=== PATIENT | male | born 1930 | race Hispanic/Latino ===

== ENCOUNTER 2017-03-13 22:09 | Inpatient (IN) | payer MEDICARE, BC ==
[2017-03-13 22:10] VITALS: BMI 29.3
[2017-03-13 23:11] LABS: BASO # 0.1 K/uL (0.0-0.2); BASO % 0.4 % (0.0-2.0); HEMOGLOBIN 11.8 g/dL (12.0-18.0); NEUT % 90.2 % (50.0-75.0)
[2017-03-13 23:19] LABS: EOS % 0.2 % (0.0-4.0); INR 2.7; LYMPH # 0.5 K/uL (1.0-4.3); LYMPH % 2.3 % (20.0-40.0); MEAN CELL VOLUME 95.4 fL (80.0-94.0); MEAN CORPUSCULAR HEMOGLOBIN 31.8 pg (27.0-31.0); MEAN CORPUSCULAR HGB CONC 33.3 g/dL (33.0-37.0); MONO # 1.4 K/uL (0.0-0.8); MONO % 6.9 % (0.0-10.0); NEUT # 18.3 K/uL (1.8-7.0); PLATELET COUNT 243 K/uL (130-400); PROTHROMBIN TIME 31.5 SECONDS (9.7-12.2); RBC 3.71 Mil/uL (4.40-5.90); RED CELL DISTRIBUTION WIDTH 15.3 % (11.5-14.5); WHITE BLOOD COUNT 20.3 K/uL (4.8-10.8)
[2017-03-13 23:25] LABS: ALB/GLOB RATIO 0.9 (1.0-2.1); ALBUMIN 3.1 g/dL (3.5-5.0)
--- NOTE | 2017-03-13 23:29 | C.PDOC ---
History Of Present Illness Patient BIBA for evaluation after having syncopal episode after BM. Patient currently residing at [facility] for rehab. He has PMHx of COPD, CHF, HTN, depression, PPM, cellulitis/stasis dermatitis. Patient states he was on the toilet and had LOC, but he remained on the toilet and did not fall to floor. He states prior to episode he felt lightheaded and weak. However he denies chest pain, palpitations, SOB, visual changes, facial droop, slurred speech, extremity weakness, sensory changes, headache. Time Seen by Provider: 03/13/17 22:14 Chief Complaint (Nursing): Syncope History Per: Patient, EMS, Other ([place] records) History/Exam Limitations: no limitations Onset/Duration Of Symptoms: Other (today) Current Symptoms Are (Timing): Better Activity At Onset Of Symptoms: Sitting Associated Symptoms Preceding Syncopal Episode: Lightheadedness Seizure Or Post-ictal Symptoms: None Fall Associated With With Symptoms: No Past Medical History Reviewed: Historical Data, Nursing Documentation, Vital Signs Vital Signs: Last Vital Signs Temp 98.3 F 03/21/17 15:00 Pulse 85 03/21/17 16:15 Resp 20 03/21/17 15:00 BP 115/68 03/21/17 15:00 Pulse Ox 95 03/21/17 15:00 - Medical History PMH: COPD, Depression, HTN Surgical History: Pacemaker Family History: States: Other Other Family History: noncontributory - Social History Hx Alcohol Use: No Hx Substance Use: No - Immunization History Hx Influenza Vaccination: Yes Hx Pneumococcal Vaccination: Yes Review Of Systems Except As Marked, All Systems Reviewed And Found Negative. Constitutional: Negative for: Fever, Chills Cardiovascular: Negative for: Chest Pain, Palpitations Respiratory: Negative for: Cough, Shortness of Breath Gastrointestinal: Negative for: Nausea, Vomiting, Abdominal Pain, Diarrhea Neurological: Positive for: Dizziness (lightheaded), Other (syncope). Negative for: Weakness, Numbness, Incoordination, Change in Speech, Confusion, Seizures, Altered Mental Status, Headache Physical Exam - Physical Exam Appears: Well, Non-toxic, No Acute Distress Skin: Normal Color, Warm, Dry, No Rash Head: Atraumatic, Normacephalic Eye(s): bilateral: Normal Inspection, PERRL, EOMI Oral Mucosa: Moist Chest: Other (sternotomy scar) Cardiovascular: Rhythm Regular, Murmur (4/6 holosystolic murmur) Respiratory: No Accessory Muscle Use, Rales (B/L bases), Rhonchi (B/L) Gastrointestinal/Abdominal: Normal Exam, Bowel Sounds, Soft, No Tenderness Extremity: Pedal Edema (+3 pitting edema B/L LEs), No Calf Tenderness Pulses: Left Dorsalis Pedis: Normal, Right Dorsalis Pedis: Normal Neurological/Psych: Oriented x3 ED Course And Treatment - Laboratory Results Result Diagrams: 03/15/17 06:27 03/18/17 06:24 ECG: Interpreted By Me, Viewed By Me (ventirucularly paced rhythm 62 bpm, left axis deviation, T wave inversions V2-V6, no acute ST changes) ECG Interpretation: Abnormal O2 Sat by Pulse Oximetry: 88 (ra) Pulse Ox Interpretation: Abnormal - Other Rad CXR X-Ray: Viewed By Me, Read By Radiologist Interpretation: EXAM: XR Chest, 1 View. CLINICAL HISTORY: 86 years old, male ; Pain; Chest pain; Additional info: SOB. TECHNIQUE: Frontal view of the chest. COMPARISON: No relevant prior studies available. FINDINGS: Lungs: Mild patchy opacity right mid and lower lung. Pleural space: Small LEFT pleural effusion. No pneumothorax. Heart: Mild cardiomegaly. Mediastinum: Atherosclerosis of thoracic aorta. Bones/joints: Median sternotomy. Tubes, lines and devices: Leads overlying chest. LEFT pacemaker. IMPRESSION: 1. Probable multifocal pneumonia. Followup to resolution to exclude underlying pathology. 2. Mild cardiomegaly. 3. Small left pleural effusion. 4. Incidental/non-acute findings are described above. Thank you for allowing us to participate in the care of your patient. [facility]. [facility]. Final Radiology Report [id number]. Name: KEVIN CENTENO Age: 86Years M Date: 03/13/2017. SSN: [id number] : 1930. Study: XR CHEST 1 VIEW Requesting Physician: SAE ROSS. Images: 2. Addl Studies: Provided Clinical History: SOB. CONFIDENTIALITY STATEMENT. This transmission is confidential and is intended to be a privileged communication. It is intended only for the use of the addressee. Access to this. message by anyone else is unauthorized. If you are not the intended recipient, any disclosure, copying, distribution or any action taken, or omitted to. be taken in reliance on it is prohibited and may be unlawful. If you received this communication in error, please notify us by telephone, so that return. of this document to us can be arranged. Page 2 of 2. Dictated and Authenticated by: Adonis Banegas MD. 03/13/2017 11:47 PM Eastern Time ([place] & [place]) - CT Scan/US CT HEAD Other Rad Studies (CT/US): Read By Radiologist, Radiology Report Reviewed CT/US Interpretation: EXAM: CT Head Without Intravenous Contrast. CLINICAL HISTORY: 86 years old, male; Pain; Headache; Additional info: Syncope. TECHNIQUE: Axial computed tomography images of the head/brain without intravenous contrast. All CT scans at. this facility use one or more dose reduction techniques, viz.: automated exposure control; ma/kV. adjustment per patient size (including targeted exams where dose is matched to indication; i.e. head);. or iterative reconstruction technique. Sagittal reformatted images were created and reviewed. COMPARISON: No relevant prior studies available. FINDINGS: Brain: Moderate atrophy. No intracranial hemorrhage. No mass. Minimal encephalomalacia within. right occipital region. Few scattered foci of decreased attenuation within periventricular/subcortical. white matter. No definite edema. Ventricles: No hydrocephalus. Bones/joints: No acute fracture. Soft tissues: Unremarkable. Vasculature: Atherosclerotic disease of intracranial arteries. Few foci of air about cavernous sinus,. nonspecific but possibly iatrogenic. Sinuses: Scattered minimal mucosal thickening. Small air-fluid level within RIGHT maxillary sinus. Mastoid air cells: No mastoid effusion. Orbits: Unremarkable as visualized. [facility]. [facility]. Final Radiology Report [id number]. Name: KEVIN CENTENO Age: 86Years M Date: 03/13/2017. SSN: [id number] : 1930. Study: CT HEAD WO Requesting Physician: SAE ROSS. Images: 469. Addl Studies: Provided Clinical History: SYNCOPE. CONFIDENTIALITY STATEMENT. This transmission is confidential and is intended to be a privileged communication. It is intended only for the use of the addressee. Access to this. message by anyone else is unauthorized. If you are not the intended recipient, any disclosure, copying, distribution or any action taken, or omitted to. be taken in reliance on it is prohibited and may be unlawful. If you received this communication in error, please notify us by telephone, so that return. of this document to us can be arranged. Page 2 of 2. IMPRESSION: 1. Nonspecific white matter changes. Acute infarction may be CT occult within first 24 hours. If a. focal deficit persists, consider followup CT or MRI for further evaluation. 2. Incidental/non -acute findings are described above. Thank you for allowing us to participate in the care of your patient. Dictated and Authenticated by: Adonis Banegas MD. 03/13/2017 11:45 PM Eastern Time ([place] & [place]) Progress Note: Blood work, CT head, EKG, CXR, UA ordered and reviewed. Patient given duoneb. CXR shows right sided PNA - IV Vancomycin, Cefepime and Avelox ordered for HCAP. BP currently 100s/30s, small IV NS bolus ordered + Bipap. 12:10- Spoke with automatic bow maker machine tender Dr. Greene, will come down and evaluate patient for possible ICU admission. Pending call back from Dr. Eng (covering Phani Mijares). Prior labs done on 03/04/17 reviewed, Bun was 49, Cr was 1.4, WBC WNL. CXR done on 03/05/17 negative for infiltrate, (+) small left pleural effusion. - Physician Consult Information Physician Contacted: Alec Eng Critical Care Time - Critical Care Note Total Time (in mins): 45 Documented critical care: time excludes all time spent performing seperately billable procedures. Disposition - Disposition Disposition: HOSPITALIZED Disposition Time: 13:43 Condition: GUARDED - Clinical Impression Clinical Impression: Pneumonia, CHF (congestive heart failure), ARF (acute renal failure), Leukocytosis, Delirium, Hypotension Decision To Admit - Pt Status Changed To: Hospital Disposition Of: Inpatient - Admit Certification Admit to Inpatient:: After my assessment, the patient will require hospitalization for at least two midnights. This is because of the severity of symptoms shown, intensity of services needed, and/or the medical risk in this patient being treated as an outpatient. - InPatient: Physician Admission Certification: I certify that this patient requires 2 or more midnights of care for the following reason:: SEE NOTES - . Bed Request Type: ICU Admitting Physician: Alec Eng Patient Diagnosis: Pneumonia, CHF (congestive heart failure), ARF (acute renal failure), Leukocytosis, Delirium, Hypotension
[2017-03-13 23:34] LABS: CK-MB 3.19 ng/mL (0.0-3.38); TROPONIN I 0.075 ng/mL (0.00-0.120)
[2017-03-13] MEDS ORDERED: Albuterol-Ipratrop 3 mg / 0.5 (3 ml) UD INH STA (23:38)
--- NOTE | 2017-03-13 23:46 | CT ---
EXAM: CT Head Without Intravenous Contrast CLINICAL HISTORY: 86 years old, male; Pain; Headache; Additional info: Syncope TECHNIQUE: Axial computed tomography images of the head/brain without intravenous contrast. All CT scans at this facility use one or more dose reduction techniques, viz.: automated exposure control; ma/kV adjustment per patient size (including targeted exams where dose is matched to indication; i.e. head); or iterative reconstruction technique. Sagittal reformatted images were created and reviewed. COMPARISON: No relevant prior studies available. FINDINGS: Brain: Moderate atrophy. No intracranial hemorrhage. No mass. Minimal encephalomalacia within right occipital region. Few scattered foci of decreased attenuation within periventricular/subcortical white matter. No definite edema. Ventricles: No hydrocephalus. Bones/joints: No acute fracture. Soft tissues: Unremarkable. Vasculature: Atherosclerotic disease of intracranial arteries. Few foci of air about cavernous sinus, nonspecific but possibly iatrogenic. Sinuses: Scattered minimal mucosal thickening. Small air-fluid level within RIGHT maxillary sinus. Mastoid air cells: No mastoid effusion. Orbits: Unremarkable as visualized. IMPRESSION: 1. Nonspecific white matter changes. Acute infarction may be CT occult within first 24 hours. If a focal deficit persists, consider followup CT or MRI for further evaluation. 2. Incidental/non-acute findings are described above.
--- NOTE | 2017-03-13 23:48 | RAD ---
EXAM: XR Chest, 1 View CLINICAL HISTORY: 86 years old, male; Pain; Chest pain; Additional info: SOB TECHNIQUE: Frontal view of the chest. COMPARISON: No relevant prior studies available. FINDINGS: Lungs: Mild patchy opacity right mid and lower lung. Pleural space: Small LEFT pleural effusion. No pneumothorax. Heart: Mild cardiomegaly. Mediastinum: Atherosclerosis of thoracic aorta. Bones/joints: Median sternotomy. Tubes, lines and devices: Leads overlying chest. LEFT pacemaker. IMPRESSION: 1. Probable multifocal pneumonia. Followup to resolution to exclude underlying pathology. 2. Mild cardiomegaly. 3. Small left pleural effusion. 4. Incidental/non-acute findings are described above.
[2017-03-13 23:49] LABS: BANDS 1 % (0-2); LYMPHOCYTE 2 % (20-40); MONOCYTE 7 % (0-10); NEUTROPHIL 90 % (50-75); PLATELET ESTIMATE NORMAL (NORMAL); TOTAL CELLS COUNTED 100
[2017-03-13] MEDS ORDERED: Vancomycin 1 GM 1 GM/250 ML BAG IV STA (23:57)
[2017-03-13] MEDS ORDERED: Cefepime 1 GM in Sodium Chloride 0.9% 50 ML IVPB STA (23:57)
[2017-03-13] MEDS ORDERED: Moxifloxacin IV 400mg/250ml NS 400 MG/250 ML BAG IV ONE (23:57)
[2017-03-14] MEDS ORDERED: Vancomycin 1 gm/NS 200 ml 1 GM/200 ML BAG IVPB STA (00:05)
[2017-03-14] MEDS ORDERED: Sodium Chloride 0.9% 250 ML IV ONE (00:06)
[2017-03-14] MEDS ORDERED: Vancomycin 1 gm/NS 200 ml 1 GM/200 ML BAG IVPB SCH (00:15)
[2017-03-14] MEDS ORDERED: Cefepime IV 1 gm in Dextrose 1 GM/50 ML BAG IVPB ONE (00:15)
[2017-03-14] MEDS ORDERED: Cefepime IV 1 gm in Dextrose 1 GM/50 ML BAG IVPB SCH ×2 (00:15→01:45)
[2017-03-14] MEDS ORDERED: Moxifloxacin IV 400mg/250ml NS 400 MG/250 ML BAG IVPB ONE (00:15)
[2017-03-14] MEDS ORDERED: Sodium Chloride 0.9% 1,000 ML IV ONE ×2 (01:00→02:53)
[2017-03-14 01:02] LABS: ABG ALLEN TEST POS; ARTERIAL BLOOD GAS HCO3 24.8 mmol/L (21-28); ARTERIAL BLOOD GAS O2 SAT 95.4 % (95-98); ARTERIAL BLOOD GAS PCO2 40 mm/Hg (35-45); ARTERIAL BLOOD GAS PO2 68 mm/Hg (80-100)
--- NOTE | 2017-03-14 05:02 | CP.PCM.CON ---
History of Present Illness - History of Present Illness History of Present Illness: 86 M from [facility], h/o htn, copd, chf, cabg, ? dementia, s/p pacemaker on anticoagulation with pradaxa was sent in form episode of syncope while on toilet seat and hypoxia spo2 in 60's on RA and 80's on NRB. Patient in needed about 60-80% FIO2, bipap, was hypotensive sbp 80-100, dbp 50-30, CXR, creat 3.8 , on 03/04 creat was 1.3, wbc 20k , cxr suspicious for right upper and lower lobe infiltrate, left lung effusion. Patient in ER had episodes of confusion and clear mind and [facility]. Patient refused further iv line and altman cath in ER. He was given bolus 1.5 liter in ER which improved his BP. PMH as above PSH CABG, pacemaker, further details not known Family history not contributory Social history former smoker details not available Allergies NKDA Meds reviewed including coreg, lisinopril, pradaxa, duonebs, flonase Review of Systems - Review of Systems All systems: reviewed and no additional remarkable complaints except (HPI) Past Patient History - Infectious Disease Hx of Infectious Diseases: None - Past Social History Smoking Status: Former Smoker - CARDIAC Hx Hypertension: Yes Hx Pacemaker: Yes - PULMONARY Hx Chronic Obstructive Pulmonary Disease (COPD): Yes - NEUROLOGICAL Hx Neurological Disorder: No - HEENT Hx HEENT Problems: No - RENAL Hx Chronic Kidney Disease: No - ENDOCRINE/METABOLIC Hx Endocrine Disorders: No - HEMATOLOGICAL/ONCOLOGICAL Hx Blood Disorders: No - INTEGUMENTARY Hx Dermatological Problems: Yes Hx Cellulitis: Yes - MUSCULOSKELETAL/RHEUMATOLOGICAL Hx Musculoskeletal Disorders: Yes Hx Falls: Yes - GASTROINTESTINAL Hx Gastrointestinal Disorders: Yes Hx Gastroesophageal Reflux: Yes - GENITOURINARY/GYNECOLOGICAL Hx Genitourinary Disorders: Yes Hx Prostate Problems: Yes - PSYCHIATRIC Hx Depression: Yes Hx Substance Use: No - SURGICAL HISTORY Hx Surgeries: Yes Other/Comment: PACEMAKER - ANESTHESIA Hx Anesthesia: Yes Meds Allergies/Adverse Reactions: Allergies Allergy/AdvReac Type Severity Reaction Status Date / Time No Known Allergies Allergy Verified 03/13/17 22:19 - Medications Medications: Current Medications Albuterol/Ipratropium (Duoneb 3 Mg/0.5 Mg (3 Ml) Ud) 3 ml IH Q6 PRN PRN Reason: Shortness of Breath Dabigatran (Pradaxa) 150 mg PO BID [facility] Cefepime HCl (Maxipime Iv 1 Gm Premix) 1 gm in 50 mls @ 100 mls/hr IVPB Q12H [facility] Last Admin: 03/14/17 01:52 Dose: Not Given Doxycycline Hyclate 100 mg/ (Sodium Chloride) 100 mls @ 100 mls/hr IVPB Q12H [facility] Last Admin: 03/14/17 02:24 Dose: 100 mls/hr Sodium Chloride (Sodium Chloride 0.9%) 1,000 mls @ 1,000 mls/hr IV .Q1H ONE Stop: 03/14/17 03:52 Last Admin: 03/14/17 02:56 Dose: 1,000 mls/hr Magnesium Oxide (Mag-Ox) 400 mg PO BID [facility] Physical Exam - Additional Findings Additional findings: * HEENT IRINA * Neck No JVD * Chest slight scattered wheezes * CVS frequent paced rhythm * PA soft, nt bs present * Ext right leg more edematous then left * Skin echymosis on both arms, lower turgor in upper ext * LEAN MANU[employer]CTURING [employer]ORD[employer]ATOR moving all 4 limbs, confusion paranoia intermittent Results - Vital Signs Recent Vital Signs: Last Vital Signs Temp 97.8 F 03/14/17 01:52 Pulse 62 03/14/17 03:30 Resp 22 03/14/17 03:30 BP 111/36 L 03/14/17 03:30 Pulse Ox 99 03/14/17 03:30 - Labs Result Diagrams: 03/13/17 23:07 03/13/17 23:07 Labs: Laboratory Results - last 24 hr 03/13/17 03/13/17 03/13/17 23:07 23:07 23:07 WBC 20.3 H RBC 3.71 L Hgb 11.8 L Hct 35.4 MCV 95.4 H MCH 31.8 H MCHC 33.3 RDW 15.3 H Plt Count 243 MPV 9.0 Neut % (Auto) 90.2 H Lymph % (Auto) 2.3 L [place] % (Auto) 6.9 Eos % (Auto) 0.2 Baso % (Auto) 0.4 Neut # 18.3 H Lymph # 0.5 L [place] # 1.4 H Eos # 0.0 Baso # 0.1 Neutrophils % (Manual) 90 H Band Neutrophils % 1 Lymphocytes % (Manual) 2 L Monocytes % (Manual) 7 Platelet Estimate Normal PT 31.5 H* INR 2.7 APTT 61 H Puncture Site pCO2 pO2 HCO3 ABG pH ABG Total CO2 ABG O2 Saturation ABG Base Excess Rafa Test ABG Potassium A-a O2 Difference Respiratory Index Glucose Lactate Vent Mode FiO2 Inspiratory BiPAP Expiratory BiPAP Sodium 131 L Potassium 4.7 Chloride 95 L Carbon Dioxide 25 Anion Gap 15 BUN 67 H Creatinine 3.8 H Est GFR ( Amer) 18 Est GFR (Non-Af Amer) 15 POC Glucose (mg/dL) Random Glucose 113 H Calcium 8.0 L Total Bilirubin 0.9 AST 31 ALT 28 Alkaline Phosphatase 86 Total Creatine Kinase 98 CK-MB (Mass) 3.19 Troponin I 0.0750 NT-Pro-B Natriuret Pep 6100 H Total Protein 6.7 Albumin 3.1 L Globulin 3.6 Albumin/Globulin Ratio 0.9 L Arterial Blood Potassium 03/13/17 03/14/17 23:11 00:44 WBC RBC Hgb Hct MCV MCH MCHC RDW Plt Count MPV Neut % (Auto) Lymph % (Auto) [place] % (Auto) Eos % (Auto) Baso % (Auto) Neut # Lymph # [place] # Eos # Baso # Neutrophils % (Manual) Band Neutrophils % Lymphocytes % (Manual) Monocytes % (Manual) Platelet Estimate PT INR APTT Puncture Site Rr pCO2 40 pO2 68 L HCO3 24.8 ABG pH 7.40 ABG Total CO2 26.0 ABG O2 Saturation 95.4 ABG Base Excess 0 Rafa Test Pos ABG Potassium 4.4 A-a O2 Difference 310.0 Respiratory Index 4.6 Glucose 105 Lactate 1.2 Vent Mode Bipap FiO2 60.0 Inspiratory BiPAP 10 Expiratory BiPAP 5 Sodium 135.0 Potassium Chloride 103.0 Carbon Dioxide Anion Gap BUN Creatinine Est GFR ( Amer) Est GFR (Non-Af Amer) POC Glucose (mg/dL) 113 H Random Glucose Calcium Total Bilirubin AST ALT Alkaline Phosphatase Total Creatine Kinase CK-MB (Mass) Troponin I NT-Pro-B Natriuret Pep Total Protein Albumin Globulin Albumin/Globulin Ratio Arterial Blood Potassium 4.4 Assessment & Plan - Assessment and Plan (Free Text) Assessment: * Hypotension, hypoxia suspected sepsis, bacterimia, pna, DD of PE, although patient is on therapeutic anticoagulation with pradaxa, needing 60-80% fio2. * TIMMY sepsis vs from atn from hypotension * H/o cad, cabg, chf s/p pacemaker * H/o COPD * Confusion/paranoia, refusal of iv line, altman cath likely form . * [place] Resident. Plan: * Bipap * Gentle IVF after initial bolus * Broad spectrum abx, cefepime, doxycycline, patient already received dose of vanco * Influenza rapid test * DVT prophylaxis continue pradaxa * GI prophylaxis * Echo, chest abd pelvis without contrast CT, to check of pna, obstructive uropathy. * Medical records from the [place], primary team * See orders for detail.
[2017-03-14] MEDS ORDERED: Sodium Chloride 0.9% 1,000 ML IV SCH (05:15)
[2017-03-14] MEDS: Albuterol-Ipratrop 3 mg / 0.5 (3 ml) UD IH PRN ×2 (07:47→14:31)
[2017-03-14] MEDS ORDERED: Magnesium Oxide 400 mg Tab UD PO SCH (10:00)
--- NOTE | 2017-03-14 13:50 | CP.CCUPN ---
<Tee Stafford - Last Filed: 03/14/17 13:56> CCU Subjective - Physician Review Subjective (Free Text): 03/14/17 13:56 Patient seen and examined at bedside. bipap off looks comfortable complaining of dry mouth started on high flow O2 tolerating well cardiology consult to eval for syncope s/p pacemaker CCU Objective - Vital Signs / Intake & Output Vital Signs (Last 4 hours): Vital Signs Pulse Resp BP Pulse Ox 03/14/17 11:14 64 28 H 110/46 L 90 L 03/14/17 11:00 64 27 H 90 L 03/14/17 10:14 60 24 101/39 L 94 L 03/14/17 10:00 23 Intake and Output (Last 8hrs): Intake & Output 03/13/17 03/14/17 03/14/17 22:59 06:59 14:59 Intake Total 300 Output Total 0 Balance 0 300 Weight 179 lb Intake: Intake, IV Amount 300 Right Antecubital 300 Output: Urine 0 Urine, Voided 0 Other: Voiding Method Urinal - Physical Exam Head: Positive for: Atraumatic, Normocephalic Pupils: Positive for: PERRL Extroacular Muscles: Positive for: EOMI Conjunctiva: Positive for: Normal Mouth: Positive for: Moist Mucous Membranes Respiratory/Chest: Positive for: Clear to Auscultation, Accessory Muscle Use, Other (high flow) Cardiovascular: Positive for: Normal S1, S2 Abdomen: Positive for: Normal Bowel Sounds. Negative for: Tenderness, Distention Neurological: Positive for: CN II-XII Intact Skin: Positive for: Warm, Dry. Negative for: Rashes Psychiatric: Positive for: Alert, Oriented x 3 - Medications Active Medications: Active Medications Generic Name Dose Route Start Last Admin Trade Name Freq PRN Reason Stop Dose Admin Albuterol/Ipratropium 3 ml 03/14/17 01:39 03/14/17 07:47 Duoneb 3 Mg/0.5 Mg (3 Ml) Ud IH 3 ml Q6 PRN Administration Shortness of Breath Dabigatran 75 mg 03/14/17 10:00 03/14/17 10:16 Pradaxa PO 75 mg BID ZULEMA Administration Doxycycline Hyclate 100 mg/ 100 mls @ 100 mls/hr 03/14/17 01:45 03/14/17 02: 24 Sodium Chloride IVPB 100 mls/hr Q12H ZULEMA Administration Cefepime HCl 1 gm in 50 mls @ 100 mls/hr 03/14/17 13:00 Maxipime Iv 1 Gm Premix IVPB Q12H ZULEMA Lactic Acid 0 gm 03/14/17 18:00 Lac-Hydrin 12% Lotion (225 G) EXT BID ZULEMA Pantoprazole Sodium 40 mg 03/15/17 10:00 Protonix Inj IVP DAILY ZULEMA - Patient Studies Lab Studies: Lab Studies 03/14/17 03/14/17 03/13/17 Range/Units 07:04 00:44 23:11 WBC (4.8-10.8) K/uL RBC (4.40-5.90) Mil/uL Hgb (12.0-18.0) g/dL Hct (35.0-51.0) % MCV (80.0-94.0) fL MCH (27.0-31.0) pg MCHC (33.0-37.0) g/dL RDW (11.5-14.5) % Plt Count (130-400) K/uL MPV (7.2-11.7) fL Neut % (Auto) (50.0-75.0) % Lymph % (Auto) (20.0-40.0) % Cass % (Auto) (0.0-10.0) % Eos % (Auto) (0.0-4.0) % Baso % (Auto) (0.0-2.0) % Neut # (1.8-7.0) K/uL Lymph # (1.0-4.3) K/uL Cass # (0.0-0.8) K/uL Eos # (0.0-0.7) K/uL Baso # (0.0-0.2) K/uL Neutrophils % (Manual) (50-75) % Band Neutrophils % (0-2) % Lymphocytes % (Manual) (20-40) % Monocytes % (Manual) (0-10) % Platelet Estimate (NORMAL) PT (9.7-12.2) SECONDS INR APTT (21-34) SECONDS Puncture Site Rr pCO2 40 (35-45) mm/Hg pO2 68 L (80-100) mm/Hg HCO3 24.8 (21-28) mmol/L ABG pH 7.40 (7.35-7.45) ABG Total CO2 26.0 (22-28) mmol/L ABG O2 Saturation 95.4 (95-98) % ABG Base Excess 0 (-2.0-3.0) mmol/L Rafa Test Pos ABG Potassium 4.4 (3.6-5.2) mmol/L A-a O2 Difference 310.0 mm/Hg Respiratory Index 4.6 Glucose 105 (75-110) mg/dl Lactate 1.2 (0.7-2.1) mmol/L Vent Mode Bipap FiO2 60.0 % Inspiratory BiPAP 10 Expiratory BiPAP 5 Sodium 135.0 (132-148) mmol/L Potassium (3.6-5.2) mmol/L Chloride 103.0 (98-107) mmol/L Carbon Dioxide (22-30) mmol/L Anion Gap (10-20) BUN (9-20) mg/dL Creatinine (0.8-1.5) mg/dL Est GFR ( Amer) Est GFR (Non-Af Amer) POC Glucose (mg/dL) 113 H (65-110) mg/dL Random Glucose (75-110) mg/dL Calcium (8.6-10.4) mg/dl Total Bilirubin (0.2-1.3) mg/dL AST (17-59) U/L ALT (21-72) U/L Alkaline Phosphatase (38-126) U/L Total Creatine Kinase (55-170) U/L CK-MB (Mass) (0.0-3.38) ng/mL Troponin I (0.00-0.120) ng/mL NT-Pro-B Natriuret Pep (0-900) pg/mL Total Protein (6.3-8.3) g/dL Albumin (3.5-5.0) g/dL Globulin (2.2-3.9) gm/dL Albumin/Globulin Ratio (1.0-2.1) Arterial Blood Potassium 4.4 (3.6-5.2) mmol/L Influenza Typ A,B (EIA) Negative for flu a/b (NEGATIVE) 03/13/17 03/13/17 03/13/17 Range/Units 23:07 23:07 23:07 WBC 20.3 H (4.8-10.8) K/uL RBC 3.71 L (4.40-5.90) Mil/uL Hgb 11.8 L (12.0-18.0) g/dL Hct 35.4 (35.0-51.0) % MCV 95.4 H (80.0-94.0) fL MCH 31.8 H (27.0-31.0) pg MCHC 33.3 (33.0-37.0) g/dL RDW 15.3 H (11.5-14.5) % Plt Count 243 (130-400) K/uL MPV 9.0 (7.2-11.7) fL Neut % (Auto) 90.2 H (50.0-75.0) % Lymph % (Auto) 2.3 L (20.0-40.0) % Cass % (Auto) 6.9 (0.0-10.0) % Eos % (Auto) 0.2 (0.0-4.0) % Baso % (Auto) 0.4 (0.0-2.0) % Neut # 18.3 H (1.8-7.0) K/uL Lymph # 0.5 L (1.0-4.3) K/uL Cass # 1.4 H (0.0-0.8) K/uL Eos # 0.0 (0.0-0.7) K/uL Baso # 0.1 (0.0-0.2) K/uL Neutrophils % (Manual) 90 H (50-75) % Band Neutrophils % 1 (0-2) % Lymphocytes % (Manual) 2 L (20-40) % Monocytes % (Manual) 7 (0-10) % Platelet Estimate Normal (NORMAL) PT 31.5 H* (9.7-12.2) SECONDS INR 2.7 APTT 61 H (21-34) SECONDS Puncture Site pCO2 (35-45) mm/Hg pO2 (80-100) mm/Hg HCO3 (21-28) mmol/L ABG pH (7.35-7.45) ABG Total CO2 (22-28) mmol/L ABG O2 Saturation (95-98) % ABG Base Excess (-2.0-3.0) mmol/L Rafa Test ABG Potassium (3.6-5.2) mmol/L A-a O2 Difference mm/Hg Respiratory Index Glucose (75-110) mg/dl Lactate (0.7-2.1) mmol/L Vent Mode FiO2 % Inspiratory BiPAP Expiratory BiPAP Sodium 131 L (132-148) mmol/L Potassium 4.7 (3.6-5.2) mmol/L Chloride 95 L (98-107) mmol/L Carbon Dioxide 25 (22-30) mmol/L Anion Gap 15 (10-20) BUN 67 H (9-20) mg/dL Creatinine 3.8 H (0.8-1.5) mg/dL Est GFR ( Amer) 18 Est GFR (Non-Af Amer) 15 POC Glucose (mg/dL) (65-110) mg/dL Random Glucose 113 H (75-110) mg/dL Calcium 8.0 L (8.6-10.4) mg/dl Total Bilirubin 0.9 (0.2-1.3) mg/dL AST 31 (17-59) U/L ALT 28 (21-72) U/L Alkaline Phosphatase 86 (38-126) U/L Total Creatine Kinase 98 (55-170) U/L CK-MB (Mass) 3.19 (0.0-3.38) ng/mL Troponin I 0.0750 (0.00-0.120) ng/mL NT-Pro-B Natriuret Pep 6100 H (0-900) pg/mL Total Protein 6.7 (6.3-8.3) g/dL Albumin 3.1 L (3.5-5.0) g/dL Globulin 3.6 (2.2-3.9) gm/dL Albumin/Globulin Ratio 0.9 L (1.0-2.1) Arterial Blood Potassium (3.6-5.2) mmol/L Influenza Typ A,B (EIA) (NEGATIVE) Laboratory Results - last 24 hr 03/13/17 03/13/17 03/13/17 23:07 23:07 23:07 WBC 20.3 H RBC 3.71 L Hgb 11.8 L Hct 35.4 MCV 95.4 H MCH 31.8 H MCHC 33.3 RDW 15.3 H Plt Count 243 MPV 9.0 Neut % (Auto) 90.2 H Lymph % (Auto) 2.3 L [place] % (Auto) 6.9 Eos % (Auto) 0.2 Baso % (Auto) 0.4 Neut # 18.3 H Lymph # 0.5 L [place] # 1.4 H Eos # 0.0 Baso # 0.1 Neutrophils % (Manual) 90 H Band Neutrophils % 1 Lymphocytes % (Manual) 2 L Monocytes % (Manual) 7 Platelet Estimate Normal PT 31.5 H* INR 2.7 APTT 61 H Puncture Site pCO2 pO2 HCO3 ABG pH ABG Total CO2 ABG O2 Saturation ABG Base Excess Rafa Test ABG Potassium A-a O2 Difference Respiratory Index Glucose Lactate Vent Mode FiO2 Inspiratory BiPAP Expiratory BiPAP Sodium 131 L Potassium 4.7 Chloride 95 L Carbon Dioxide 25 Anion Gap 15 BUN 67 H Creatinine 3.8 H Est GFR ( Amer) 18 Est GFR (Non-Af Amer) 15 POC Glucose (mg/dL) Random Glucose 113 H Calcium 8.0 L Total Bilirubin 0.9 AST 31 ALT 28 Alkaline Phosphatase 86 Total Creatine Kinase 98 CK-MB (Mass) 3.19 Troponin I 0.0750 NT-Pro-B Natriuret Pep 6100 H Total Protein 6.7 Albumin 3.1 L Globulin 3.6 Albumin/Globulin Ratio 0.9 L Arterial Blood Potassium Influenza Typ A,B (EIA) 03/13/17 03/14/17 03/14/17 23:11 00:44 07:04 WBC RBC Hgb Hct MCV MCH MCHC RDW Plt Count MPV Neut % (Auto) Lymph % (Auto) [place] % (Auto) Eos % (Auto) Baso % (Auto) Neut # Lymph # Cass # Eos # Baso # Neutrophils % (Manual) Band Neutrophils % Lymphocytes % (Manual) Monocytes % (Manual) Platelet Estimate PT INR APTT Puncture Site Rr pCO2 40 pO2 68 L HCO3 24.8 ABG pH 7.40 ABG Total CO2 26.0 ABG O2 Saturation 95.4 ABG Base Excess 0 Rafa Test Pos ABG Potassium 4.4 A-a O2 Difference 310.0 Respiratory Index 4.6 Glucose 105 Lactate 1.2 Vent Mode Bipap FiO2 60.0 Inspiratory BiPAP 10 Expiratory BiPAP 5 Sodium 135.0 Potassium Chloride 103.0 Carbon Dioxide Anion Gap BUN Creatinine Est GFR ( Amer) Est GFR (Non-Af Amer) POC Glucose (mg/dL) 113 H Random Glucose Calcium Total Bilirubin AST ALT Alkaline Phosphatase Total Creatine Kinase CK-MB (Mass) Troponin I NT-Pro-B Natriuret Pep Total Protein Albumin Globulin Albumin/Globulin Ratio Arterial Blood Potassium 4.4 Influenza Typ A,B (EIA) Negative for flu a/b EKG/Cardiology Studies: Cardiology / EKG Studies 03/13/17 22:08 EKG [ELECTROCARDIOGRAM] Stat Comment: Mode Of Transportation: BED Reason For Exam: cp 03/13/17 22:41 ELECTROCARDIOGRAM Stat Comment: BED4 Mode Of Transportation: BED Reason For Exam: SYNCOPE Fingerstick Blood Sugar Results: 113 Assessment/Plan - Assessment and Plan (Free Text) Assessment: 86M presents with syncope and hypoxia and posible pneumonia Neuro: Head CT shows nonspecific white matter changes. Cardio: single chamber pace maker Echo - f/u Ekg showed ventricular paced rhythm Troponins wnl. Cardiology consulted for pacemaker interrogation and syncope workup. Pradaxa 75 PO BID. Pulm: Respiratory distress, CXR shows probable multifocal pneumonia. Chest CT- f/u LE duplex scan - f/u Cefepime 1 IV Q12. Doxycycline 100 IV Q12. Albuterol/Ipratropium 3/0.5 Q6 PRN. Highflow 45L, 80%, 35 degrees ABG: pCO2 40, pO2 68, HCO3 24.8, pH 7.40 Renal: BUN/Cr 67/3.8 I/O = +300 since 0700 03/14 Heme/Onc: PT 31.5, INR 2.7, PTT 61. H/H: 11.8/35.4 ID: WBC 20.3. Blood culture ordered. Urine culture ordered. MRSA screen ordered. Prophylaxis: GI: Protonix 40 mg IVP Daily <Malou De La Cruz - Last Filed: 03/17/17 02:39> CCU Objective - Vital Signs / Intake & Output Vital Signs (Last 4 hours): Vital Signs Temp Pulse Resp BP Pulse Ox 03/17/17 01:00 68 03/17/17 00:00 98 F 68 18 108/56 L 97 Intake and Output (Last 8hrs): Intake & Output 03/16/17 03/16/17 03/17/17 14:59 22:59 06:59 Intake Total 320 Output Total 160 175 Balance 160 -175 Intake: Oral 320 Output: Urine 160 175 Urethral ([place]) 160 175 Emesis 0 Other: # Bowel Movements 0 0 - Medications Active Medications: Active Medications Generic Name Dose Route Start Last Admin Trade Name Freq PRN Reason Stop Dose Admin Albuterol/Ipratropium 3 ml 03/14/17 01:39 03/16/17 19:53 Duoneb 3 Mg/0.5 Mg (3 Ml) Ud IH 3 ml Q6 PRN Administration Shortness of Breath Carvedilol 6.25 mg 03/15/17 10:00 03/16/17 18:29 Coreg PO 6.25 mg BID ZULEMA Administration Dabigatran 75 mg 03/14/17 10:00 03/16/17 18:37 Pradaxa PO 75 mg BID ZULEMA Administration Ezetimibe 10 mg 03/15/17 22:00 03/16/17 22:03 Zetia PO 10 mg HS ZULEMA Administration Fluticasone Propionate 1 spr 03/15/17 10:00 03/16/17 09:56 Flonase NS 1 puff DAILY ZULEMA Administration Doxycycline Hyclate 100 mg/ 100 mls @ 100 mls/hr 03/14/17 01:45 03/16/17 13: 30 Sodium Chloride IVPB 100 mls/hr Q12H ZULEMA Administration Cefepime HCl 1 gm in 50 mls @ 100 mls/hr 03/14/17 13:00 03/16/17 13:00 Maxipime Iv 1 Gm Premix IVPB 100 mls/hr Q12H ZULEMA Administration Lactic Acid 0 gm 03/14/17 18:00 03/16/17 18:30 Lac-Hydrin 12% Lotion (225 G) EXT 1 each BID ZULEMA Administration Lisinopril 2.5 mg 03/15/17 10:00 03/16/17 09:55 Zestril PO 2.5 mg DAILY ZULEMA Administration Oxycodone/Acetaminophen 1 tab 03/14/17 20:34 03/16/17 18:29 Percocet 5/325 Mg Tab PO 1 tab Q6 PRN Administration Pain, moderate (4-7) Pantoprazole Sodium 40 mg 03/15/17 10:00 03/16/17 09:56 Protonix Inj IVP 40 mg DAILY ZULEMA Administration Rosuvastatin Calcium 5 mg 03/15/17 22:00 03/16/17 22:03 Crestor PO 5 mg HS ZULEMA Administration Fluticasone/Salmeterol 1 puff 03/15/17 20:00 03/16/17 19:53 Advair Diskus 250/50 INH 1 puff RQ12 ZULEMA Administration Sennosides 17.2 mg 03/15/17 22:00 03/16/17 22:04 Senokot Tab PO 17.2 mg HS ZULEMA Administration Torsemide 20 mg 03/15/17 10:00 03/16/17 10:00 Demadex PO 20 mg DAILY ZULEMA Administration Trazodone HCl 100 mg 03/15/17 22:00 03/16/17 22:03 Desyrel PO 100 mg HS ZULEMA Administration - Patient Studies Lab Studies: Microbiology Studies 03/13/17 23:40 Blood Culture - Preliminary Blood NO GROWTH AFTER 48 HOURS Critical Care Progress Note - Nutrition Nutrition: Nutrition Category Date Time Status Heart Healthy Diet [DIET] Diets 03/15/17 Breakfast Active Attending/Attestation - Attestation I have personally seen and examined this patient.: Yes I have fully participated in the care of the patient.: Yes I have reviewed all pertinent clinical information: Yes Notes (Text): Agree with the resident notes, discussion was made to during the rounds. Labs reviewed Continue the current treatment
[2017-03-14] MEDS: Cefepime IV 1 gm in Dextrose 1 GM/50 ML BAG IVPB SCH (14:10)
--- NOTE | 2017-03-14 18:56 | CT ---
PROCEDURE: CT Chest, Abdomen and Pelvis without intravenous contrast HISTORY: Check for extent of pneumonia. Assess 4 hydronephrosis. COMPARISON: None. TECHNIQUE: Radiation dose: Total exam DLP = 1110.25 mGy-cm. This CT exam was performed using one or more of the following dose reduction techniques: Automated exposure control, adjustment of the mA and/or kV according to patient size, and/or use of iterative reconstruction technique. FINDINGS: CT CHEST WITHOUT CONTRAST: LUNGS: Multifocal infiltrates affecting right upper lobe, right middle lobe and to a greater extent right lower lobe. Left lower lobe infiltrate. Focal infiltrate right upper lobe. Please note, there may be an underlying pulmonary nodule, mass in the anterior segment of the right upper lobe. This measures 1.6 cm. Please refer to sagittal series 602, image 49 and axial series 3, image 65. MEDIASTINUM: Dilated main pulmonary artery 4.1 cm consistent with pulmonary arterial hypertension. Cardiomegaly. No evidence of acute, significant cardiovascular disease. LYMPH NODES: Other than the nonspecifically enlarged azygos peritracheal lymph nodes, No appreciable lymphadenopathy. Absence of intravenous contrast precludes optimal assessment PLEURA: Unremarkable. No pneumothorax. No pleural fluid. BONES: Unremarkable. OTHER FINDINGS: None. CT ABDOMEN AND PELVIS: LIVER: Unremarkable. No gross lesion or ductal dilatation. GALLBLADDER AND BILE DUCTS: Dilated gallbladder. Cholelithiasis without CT evidence of acute cholecystitis. PANCREAS: Unremarkable. No gross lesion or ductal dilatation. SPLEEN: Unremarkable. ADRENALS: Unremarkable. No mass. KIDNEYS AND URETERS: Unremarkable. No hydronephrosis. No solid mass. VASCULATURE: Unremarkable. No aortic aneurysm. BOWEL: Unremarkable. No obstruction. No gross mural thickening. APPENDIX: No abnormalities to suggest acute appendicitis. No right lower quadrant inflammatory processes identified. PERITONEUM: Unremarkable. No free fluid. No free air. LYMPH NODES: Unremarkable. No enlarged lymph nodes. BLADDER: Unremarkable. REPRODUCTIVE: Enlarged prostate. Orthogonal measurements 5.4 x 6.2 cm. BONES: No acute fracture. OTHER FINDINGS: None. IMPRESSION: 1. Multifocal infiltrates, possible right lung nodule/ mass. Follow-up to resolution identified. 2. Nonspecific, mildly enlarged mediastinal lymph nodes. 3. Cholelithiasis without CT evidence of acute cholecystitis. Additional benign and/or incidental findings described above.
[2017-03-14] MEDS: Ammonium Lactate 12% Lotion (225 g) EXT SCH (19:02)
--- NOTE | 2017-03-14 19:41 | CP.PCM.CON ---
Past Patient History - Infectious Disease Hx of Infectious Diseases: None - Past Medical History & Family History Past Medical History?: Yes - Past Social History Smoking Status: Former Smoker - CARDIAC Hx Cardiac Disorders: Yes (CABG,S/O PACEMAKER) Hx Congestive Heart Failure: Yes Hx Hypertension: Yes - PULMONARY Hx Chronic Obstructive Pulmonary Disease (COPD): Yes - NEUROLOGICAL Hx Neurological Disorder: No - HEENT Hx HEENT Problems: No - RENAL Hx Chronic Kidney Disease: No - ENDOCRINE/METABOLIC Hx Endocrine Disorders: No - HEMATOLOGICAL/ONCOLOGICAL Hx Blood Disorders: No - INTEGUMENTARY Hx Dermatological Problems: Yes Hx Cellulitis: Yes - MUSCULOSKELETAL/RHEUMATOLOGICAL Hx Musculoskeletal Disorders: Yes Hx Falls: Yes - GASTROINTESTINAL Hx Gastrointestinal Disorders: Yes Hx Gastroesophageal Reflux: Yes - GENITOURINARY/GYNECOLOGICAL Hx Genitourinary Disorders: Yes Hx Prostate Problems: Yes - PSYCHIATRIC Hx Depression: Yes Hx Substance Use: No - SURGICAL HISTORY Hx Surgeries: Yes Other/Comment: PACEMAKER - ANESTHESIA Hx Anesthesia: Yes Meds Allergies/Adverse Reactions: Allergies Allergy/AdvReac Type Severity Reaction Status Date / Time No Known Allergies Allergy Verified 03/13/17 22:19 - Medications Medications: Current Medications Albuterol/Ipratropium (Duoneb 3 Mg/0.5 Mg (3 Ml) Ud) 3 ml IH Q6 PRN PRN Reason: Shortness of Breath Last Admin: 03/14/17 14:31 Dose: 3 ml Dabigatran (Pradaxa) 75 mg PO BID [facility] Last Admin: 03/14/17 10:16 Dose: 75 mg Doxycycline Hyclate 100 mg/ (Sodium Chloride) 100 mls @ 100 mls/hr IVPB Q12H [facility] Last Admin: 03/14/17 14:52 Dose: 100 mls/hr Cefepime HCl (Maxipime Iv 1 Gm Premix) 1 gm in 50 mls @ 100 mls/hr IVPB Q12H [facility] Last Admin: 03/14/17 14:10 Dose: 100 mls/hr Lactic Acid (Lac-Hydrin 12% Lotion (225 G)) 0 gm EXT BID [facility] Last Admin: 03/14/17 19:02 Dose: 1 each Pantoprazole Sodium (Protonix Inj) 40 mg IVP DAILY [facility] Results - Vital Signs Recent Vital Signs: Last Vital Signs Temp 97.4 F L 03/14/17 14:00 Pulse 62 03/14/17 19:15 Resp 22 03/14/17 19:15 BP 114/38 L 03/14/17 19:15 Pulse Ox 94 L 03/14/17 19:15 - Labs Result Diagrams: 03/13/17 23:07 03/13/17 23:07 Labs: Laboratory Results - last 24 hr 03/13/17 03/13/17 03/13/17 23:07 23:07 23:07 WBC 20.3 H RBC 3.71 L Hgb 11.8 L Hct 35.4 MCV 95.4 H MCH 31.8 H MCHC 33.3 RDW 15.3 H Plt Count 243 MPV 9.0 Neut % (Auto) 90.2 H Lymph % (Auto) 2.3 L [place] % (Auto) 6.9 Eos % (Auto) 0.2 Baso % (Auto) 0.4 Neut # 18.3 H Lymph # 0.5 L [place] # 1.4 H Eos # 0.0 Baso # 0.1 Neutrophils % (Manual) 90 H Band Neutrophils % 1 Lymphocytes % (Manual) 2 L Monocytes % (Manual) 7 Platelet Estimate Normal PT 31.5 H* INR 2.7 APTT 61 H Puncture Site pCO2 pO2 HCO3 ABG pH ABG Total CO2 ABG O2 Saturation ABG Base Excess Rafa Test ABG Potassium A-a O2 Difference Respiratory Index Glucose Lactate Vent Mode FiO2 Inspiratory BiPAP Expiratory BiPAP Sodium 131 L Potassium 4.7 Chloride 95 L Carbon Dioxide 25 Anion Gap 15 BUN 67 H Creatinine 3.8 H Est GFR ( Amer) 18 Est GFR (Non-Af Amer) 15 POC Glucose (mg/dL) Random Glucose 113 H Calcium 8.0 L Total Bilirubin 0.9 AST 31 ALT 28 Alkaline Phosphatase 86 Total Creatine Kinase 98 CK-MB (Mass) 3.19 Troponin I 0.0750 NT-Pro-B Natriuret Pep 6100 H Total Protein 6.7 Albumin 3.1 L Globulin 3.6 Albumin/Globulin Ratio 0.9 L Arterial Blood Potassium Influenza Typ A,B (EIA) 03/13/17 03/14/17 03/14/17 23:11 00:44 07:04 WBC RBC Hgb Hct MCV MCH MCHC RDW Plt Count MPV Neut % (Auto) Lymph % (Auto) [place] % (Auto) Eos % (Auto) Baso % (Auto) Neut # Lymph # [place] # Eos # Baso # Neutrophils % (Manual) Band Neutrophils % Lymphocytes % (Manual) Monocytes % (Manual) Platelet Estimate PT INR APTT Puncture Site Rr pCO2 40 pO2 68 L HCO3 24.8 ABG pH 7.40 ABG Total CO2 26.0 ABG O2 Saturation 95.4 ABG Base Excess 0 Rafa Test Pos ABG Potassium 4.4 A-a O2 Difference 310.0 Respiratory Index 4.6 Glucose 105 Lactate 1.2 Vent Mode Bipap FiO2 60.0 Inspiratory BiPAP 10 Expiratory BiPAP 5 Sodium 135.0 Potassium Chloride 103.0 Carbon Dioxide Anion Gap BUN Creatinine Est GFR ( Amer) Est GFR (Non-Af Amer) POC Glucose (mg/dL) 113 H Random Glucose Calcium Total Bilirubin AST ALT Alkaline Phosphatase Total Creatine Kinase CK-MB (Mass) Troponin I NT-Pro-B Natriuret Pep Total Protein Albumin Globulin Albumin/Globulin Ratio Arterial Blood Potassium 4.4 Influenza Typ A,B (EIA) Negative for flu a/b
[2017-03-14] MEDS: Oxycodone/Acetaminophen 5/325 mg Tab PO PRN (21:05)
--- NOTE | 2017-03-14 22:25 | CP.PCM.HP ---
Past Patient History - Infectious Disease Hx of Infectious Diseases: None - Past Medical History & Family History Past Medical History?: Yes - Past Social History Smoking Status: Former Smoker - CARDIAC Hx Cardiac Disorders: Yes (CABG,S/O PACEMAKER) Hx Congestive Heart Failure: Yes Hx Hypertension: Yes - PULMONARY Hx Chronic Obstructive Pulmonary Disease (COPD): Yes - NEUROLOGICAL Hx Neurological Disorder: No - HEENT Hx HEENT Problems: No - RENAL Hx Chronic Kidney Disease: No - ENDOCRINE/METABOLIC Hx Endocrine Disorders: No - HEMATOLOGICAL/ONCOLOGICAL Hx Blood Disorders: No - INTEGUMENTARY Hx Dermatological Problems: Yes Hx Cellulitis: Yes - MUSCULOSKELETAL/RHEUMATOLOGICAL Hx Musculoskeletal Disorders: Yes Hx Falls: Yes - GASTROINTESTINAL Hx Gastrointestinal Disorders: Yes Hx Gastroesophageal Reflux: Yes - GENITOURINARY/GYNECOLOGICAL Hx Genitourinary Disorders: Yes Hx Prostate Problems: Yes - PSYCHIATRIC Hx Depression: Yes Hx Substance Use: No - SURGICAL HISTORY Hx Surgeries: Yes Other/Comment: PACEMAKER - ANESTHESIA Hx Anesthesia: Yes Meds Allergies/Adverse Reactions: Allergies Allergy/AdvReac Type Severity Reaction Status Date / Time No Known Allergies Allergy Verified 03/13/17 22:19 Results - Vital Signs Recent Vital Signs: Last Vital Signs Temp 97.4 F L 03/14/17 14:00 Pulse 64 03/14/17 20:15 Resp 27 H 03/14/17 20:52 BP 94/38 L 03/14/17 20:15 Pulse Ox 91 L 03/14/17 20:15 - Labs Result Diagrams: 03/13/17 23:07 03/13/17 23:07 Labs: Laboratory Results - last 24 hr 03/13/17 03/13/17 03/13/17 23:07 23:07 23:07 WBC 20.3 H RBC 3.71 L Hgb 11.8 L Hct 35.4 MCV 95.4 H MCH 31.8 H MCHC 33.3 RDW 15.3 H Plt Count 243 MPV 9.0 Neut % (Auto) 90.2 H Lymph % (Auto) 2.3 L [place] % (Auto) 6.9 Eos % (Auto) 0.2 Baso % (Auto) 0.4 Neut # 18.3 H Lymph # 0.5 L [place] # 1.4 H Eos # 0.0 Baso # 0.1 Neutrophils % (Manual) 90 H Band Neutrophils % 1 Lymphocytes % (Manual) 2 L Monocytes % (Manual) 7 Platelet Estimate Normal PT 31.5 H* INR 2.7 APTT 61 H Puncture Site pCO2 pO2 HCO3 ABG pH ABG Total CO2 ABG O2 Saturation ABG Base Excess Rafa Test ABG Potassium A-a O2 Difference Respiratory Index Glucose Lactate Vent Mode FiO2 Inspiratory BiPAP Expiratory BiPAP Sodium 131 L Potassium 4.7 Chloride 95 L Carbon Dioxide 25 Anion Gap 15 BUN 67 H Creatinine 3.8 H Est GFR ( Amer) 18 Est GFR (Non-Af Amer) 15 POC Glucose (mg/dL) Random Glucose 113 H Calcium 8.0 L Total Bilirubin 0.9 AST 31 ALT 28 Alkaline Phosphatase 86 Total Creatine Kinase 98 CK-MB (Mass) 3.19 Troponin I 0.0750 NT-Pro-B Natriuret Pep 6100 H Total Protein 6.7 Albumin 3.1 L Globulin 3.6 Albumin/Globulin Ratio 0.9 L Arterial Blood Potassium Influenza Typ A,B (EIA) 03/13/17 03/14/17 03/14/17 23:11 00:44 07:04 WBC RBC Hgb Hct MCV MCH MCHC RDW Plt Count MPV Neut % (Auto) Lymph % (Auto) Sanders % (Auto) Eos % (Auto) Baso % (Auto) Neut # Lymph # Sanders # Eos # Baso # Neutrophils % (Manual) Band Neutrophils % Lymphocytes % (Manual) Monocytes % (Manual) Platelet Estimate PT INR APTT Puncture Site Rr pCO2 40 pO2 68 L HCO3 24.8 ABG pH 7.40 ABG Total CO2 26.0 ABG O2 Saturation 95.4 ABG Base Excess 0 Rafa Test Pos ABG Potassium 4.4 A-a O2 Difference 310.0 Respiratory Index 4.6 Glucose 105 Lactate 1.2 Vent Mode Bipap FiO2 60.0 Inspiratory BiPAP 10 Expiratory BiPAP 5 Sodium 135.0 Potassium Chloride 103.0 Carbon Dioxide Anion Gap BUN Creatinine Est GFR ( Amer) Est GFR (Non-Af Amer) POC Glucose (mg/dL) 113 H Random Glucose Calcium Total Bilirubin AST ALT Alkaline Phosphatase Total Creatine Kinase CK-MB (Mass) Troponin I NT-Pro-B Natriuret Pep Total Protein Albumin Globulin Albumin/Globulin Ratio Arterial Blood Potassium 4.4 Influenza Typ A,B (EIA) Negative for flu a/b
[2017-03-15] MEDS: Cefepime IV 1 gm in Dextrose 1 GM/50 ML BAG IVPB SCH ×2 (01:04→14:13)
--- NOTE | 2017-03-15 04:31 | CARD ---
APPROVED REPORT EXAM: Two-dimensional and M-mode echocardiogram with Doppler and color Doppler. Other Information Quality : GoodRhythm : INDICATION Syncope Congestive Heart Failure 2D DIMENSIONS IVSd0.9 (0.7-1.1cm)LVDd5.4 (3.9-5.9cm) LVOT Diameter2.1 (1.8-2.4cm)PWd0.9 (0.7-1.1cm) LVDs3.3 (2.5-4.0cm)FS (%) 39.1 % LVEF (%)69.0 (>50%) M-Mode DIMENSIONS RVDd1.58 (2.1-3.2cm)Left Atrium (MM)5.16 (2.5-4.0cm) Aortic Root3.92 (2.2-3.7cm)Aortic Cusp Exc.1.64 (1.5-2.0cm) Aortic Valve AoV Peak Zyggxqew170.9cm/sAoV VTI40.5cmAO Peak GR.27mmHg LVOT Peak Coymobyc155.6cm/sLVOT VTI24.95cmAO Mean GR.16mmHg CUCA (VMAX)1.73qo0XWW (VTI)2.16cm2 Mitral Valve MV E Auxyzbxk84.8cm/sE/A ratio0.0 TDI E/Lateral E'0.0E/Medial E'0.0 Tricuspid Valve TR Peak Pkmhptej165gi/sTR Peak Gr.62xeLrGVOL13nrPq LEFT VENTRICLE The left ventricle is normal size. There is normal left ventricular wall thickness. Left ventricle systolic function is normal. The Ejection Fraction is 65-70%. There is normal LV segmental wall motion. The left ventricular diastolic function is normal. RIGHT VENTRICLE The right ventricle is normal size. There is normal right ventricular wall thickness. The right ventricular systolic function is normal. ATRIA The left atrium is moderately dilated. The right atrium is moderately dilated. The interatrial septum is intact with no evidence for an atrial septal defect. AORTIC VALVE The aortic valve is calcified and displays decreased opening. There is trace aortic regurgitation. There is mild valvular aortic stenosis. Calculated aortic valve area is 1.98 cm2 with maximum pressure gradient of 27 mmHg and mean pressure gradient of 16 mmHg. MITRAL VALVE The mitral valve is normal in structure. There is no evidence of mitral valve prolapse. There is no mitral valve stenosis. Mitral regurgitation is mild. TRICUSPID VALVE The tricuspid valve is normal in structure. There is moderate tricuspid regurgitation. Right ventricular systolic pressure is estimated at greater than 60 mmHg. There is severe pulmonary hypertension. PULMONIC VALVE The pulmonic valve is not well visualized. There is no pulmonic valvular regurgitation. GREAT VESSELS The aortic root is normal in size. PERICARDIAL EFFUSION There is no significant pericardial effusion. <Conclusion> Left ventricle systolic function is normal. The Ejection Fraction is 65-70%. There is mild valvular aortic stenosis. Trace aortic regurgitation. Mitral regurgitation is mild. There is moderate tricuspid regurgitation. There is severe pulmonary hypertension. There is no pulmonic valvular regurgitation.
[2017-03-15] MEDS: Oxycodone/Acetaminophen 5/325 mg Tab PO PRN ×3 (06:07→21:58)
[2017-03-15 06:42] LABS: SQUAMOUS EPITHIAL < 1 /hpf (0-5); URINE BILIRUBIN NEGATIVE (NEGATIVE); URINE BLOOD NEGATIVE (NEGATIVE); URINE CLARITY Hazy (Clear); URINE COLOR Yellow (YELLOW); URINE GLUCOSE (UA) NORMAL (Normal); URINE LEUKOCYTE ESTERASE NEG Leu/uL (Negative); URINE NITRATE NEGATIVE (NEGATIVE); URINE PROTEIN NEGATIVE (NEGATIVE); URINE UROBILINOGEN NORMAL mg/dL (0.2-1.0)
[2017-03-15 06:48] LABS: BASO # 0.1 K/uL (0.0-0.2); BASO % 0.5 % (0.0-2.0); EOS # 0.1 K/uL (0.0-0.7); EOS % 0.7 % (0.0-4.0); HEMOGLOBIN 11.5 g/dL (12.0-18.0); LYMPH # 0.4 K/uL (1.0-4.3); LYMPH % 2.7 % (20.0-40.0); MEAN CELL VOLUME 94.7 fL (80.0-94.0); MEAN CORPUSCULAR HEMOGLOBIN 31.5 pg (27.0-31.0); MEAN CORPUSCULAR HGB CONC 33.2 g/dL (33.0-37.0); MEAN PLATELET VOLUME 9.6 fL (7.2-11.7); MONO # 1.1 K/uL (0.0-0.8); MONO % 7.3 % (0.0-10.0); NEUT # 13.4 K/uL (1.8-7.0); NEUT % 88.8 % (50.0-75.0); PLATELET COUNT 240 K/uL (130-400); RBC 3.66 Mil/uL (4.40-5.90); RED CELL DISTRIBUTION WIDTH 15.6 % (11.5-14.5); WHITE BLOOD COUNT 15.1 K/uL (4.8-10.8)
[2017-03-15 06:52] LABS: ALB/GLOB RATIO 0.8 (1.0-2.1); ALBUMIN 2.5 g/dL (3.5-5.0); CALCIUM 7.6 mg/dl (8.6-10.4); MAGNESIUM 2.4 mg/dL (1.6-2.3)
[2017-03-15] MEDS: Albuterol-Ipratrop 3 mg / 0.5 (3 ml) UD IH PRN ×3 (08:34→19:54)
[2017-03-15 09:28] LABS: ANISOCYTOSIS SLIGHT; BANDS 1 % (0-2); LYMPHOCYTE 2 % (20-40); MONOCYTE 3 % (0-10); NEUTROPHIL 94 % (50-75); PLATELET ESTIMATE NORMAL (NORMAL); TOTAL CELLS COUNTED 100
[2017-03-15 09:29] LABS: BURR CELLS SLIGHT; HYPOCHROMIC SLIGHT; LARGE PLATELETS PRESENT; OVALOCYTES SLIGHT; POIKILOCYTOSIS SLIGHT; POLYCHROMIC SLIGHT
[2017-03-15 09:30] LABS: TOXIC GRANULATION PRESENT
[2017-03-15] MEDS: Fluticasone Nasal 50 mcg/Spray NS SCH (10:14)
[2017-03-15] MEDS: Ammonium Lactate 12% Lotion (225 g) EXT SCH ×2 (10:15→18:05)
--- NOTE | 2017-03-15 13:09 | CP.PCM.PN ---
Subjective - Date & Time of Evaluation Date of Evaluation: 03/15/17 Time of Evaluation: 13:09 Objective - Vital Signs/Intake and Output Vital Signs (last 24 hours): Temp Pulse Resp BP Pulse Ox 98.5 F 87 23 128/61 96 03/15/17 08:00 03/15/17 12:27 03/15/17 12:15 03/15/17 12:15 03/15/17 12:27 Intake and Output: 03/15/17 03/15/17 06:59 18:59 Intake Total 500 150 Output Total 650 575 Balance -150 -425 - Medications Medications: Current Medications Albuterol/Ipratropium (Duoneb 3 Mg/0.5 Mg (3 Ml) Ud) 3 ml IH Q6 PRN PRN Reason: Shortness of Breath Last Admin: 03/15/17 08:34 Dose: 3 ml Carvedilol (Coreg) 6.25 mg PO BID [facility] Last Admin: 03/15/17 10:13 Dose: 6.25 mg Dabigatran (Pradaxa) 75 mg PO BID [facility] Last Admin: 03/15/17 10:14 Dose: 75 mg Ezetimibe (Zetia) 10 mg PO HS [facility] Fluticasone Propionate (Flonase) 1 spr NS DAILY [facility] Last Admin: 03/15/17 10:14 Dose: 1 puff Doxycycline Hyclate 100 mg/ (Sodium Chloride) 100 mls @ 100 mls/hr IVPB Q12H [facility] Last Admin: 03/15/17 01:04 Dose: 100 mls/hr Cefepime HCl (Maxipime Iv 1 Gm Premix) 1 gm in 50 mls @ 100 mls/hr IVPB Q12H [facility] Last Admin: 03/15/17 01:04 Dose: 100 mls/hr Lactic Acid (Lac-Hydrin 12% Lotion (225 G)) 0 gm EXT BID [facility] Last Admin: 03/15/17 10:15 Dose: 1 each Lisinopril (Zestril) 2.5 mg PO DAILY [facility] Oxycodone/Acetaminophen (Percocet 5/325 Mg Tab) 1 tab PO Q6 PRN PRN Reason: Pain, moderate (4-7) Last Admin: 03/15/17 06:07 Dose: 1 tab Pantoprazole Sodium (Protonix Inj) 40 mg IVP DAILY [facility] Last Admin: 03/15/17 10:13 Dose: 40 mg Rosuvastatin Calcium (Crestor) 5 mg PO HS [facility] Fluticasone/Salmeterol (Advair Diskus 250/50) 1 puff INH RQ12 [facility] Sennosides (Senokot Tab) 17.2 mg PO HS [facility] Torsemide (Demadex) 20 mg PO DAILY [facility] Last Admin: 03/15/17 10:13 Dose: 20 mg Trazodone HCl (Desyrel) 100 mg PO HS [facility] - Labs Labs: 03/15/17 06:27 03/15/17 06:27 PT 31.5 SECONDS (9.7-12.2) H* 03/13/17 23:07 INR 2.7 03/13/17 23:07 APTT 61 SECONDS (21-34) H 03/13/17 23:07
--- NOTE | 2017-03-15 16:48 | CP.PCM.PN ---
Subjective - Date & Time of Evaluation Date of Evaluation: 03/15/17 Time of Evaluation: 11:00 - Subjective Subjective: clinically same Objective - Vital Signs/Intake and Output Vital Signs (last 24 hours): Temp Pulse Resp BP Pulse Ox 98.1 F 84 17 109/64 90 L 03/15/17 16:00 03/15/17 16:16 03/15/17 16:16 03/15/17 14:15 03/15/17 16:00 Intake and Output: 03/15/17 03/15/17 06:59 18:59 Intake Total 500 500 Output Total 650 825 Balance -150 -325 - Medications Medications: Current Medications Albuterol/Ipratropium (Duoneb 3 Mg/0.5 Mg (3 Ml) Ud) 3 ml IH Q6 PRN PRN Reason: Shortness of Breath Last Admin: 03/15/17 13:29 Dose: 3 ml Carvedilol (Coreg) 6.25 mg PO BID [facility] Last Admin: 03/15/17 10:13 Dose: 6.25 mg Dabigatran (Pradaxa) 75 mg PO BID [facility] Last Admin: 03/15/17 10:14 Dose: 75 mg Ezetimibe (Zetia) 10 mg PO [facility] Fluticasone Propionate (Flonase) 1 spr NS DAILY [facility] Last Admin: 03/15/17 10:14 Dose: 1 puff Doxycycline Hyclate 100 mg/ (Sodium Chloride) 100 mls @ 100 mls/hr IVPB Q12H [facility] Last Admin: 03/15/17 13:23 Dose: 100 mls/hr Cefepime HCl (Maxipime Iv 1 Gm Premix) 1 gm in 50 mls @ 100 mls/hr IVPB Q12H [facility] Last Admin: 03/15/17 14:13 Dose: 100 mls/hr Lactic Acid (Lac-Hydrin 12% Lotion (225 G)) 0 gm EXT BID [facility] Last Admin: 03/15/17 10:15 Dose: 1 each Lisinopril (Zestril) 2.5 mg PO DAILY [facility] Last Admin: 03/15/17 13:24 Dose: 2.5 mg Oxycodone/Acetaminophen (Percocet 5/325 Mg Tab) 1 tab PO Q6 PRN PRN Reason: Pain, moderate (4-7) Last Admin: 03/15/17 13:25 Dose: 1 tab Pantoprazole Sodium (Protonix Inj) 40 mg IVP DAILY [facility] Last Admin: 03/15/17 10:13 Dose: 40 mg Rosuvastatin Calcium (Crestor) 5 mg PO HS [facility] Fluticasone/Salmeterol (Advair Diskus 250/50) 1 puff INH RQ12 [facility] Sennosides (Senokot Tab) 17.2 mg PO HS [facility] Torsemide (Demadex) 20 mg PO DAILY [facility] Last Admin: 03/15/17 10:13 Dose: 20 mg Trazodone HCl (Desyrel) 100 mg PO HS [facility] - Labs Labs: 03/15/17 06:27 03/15/17 06:27 PT 31.5 SECONDS (9.7-12.2) H* 03/13/17 23:07 INR 2.7 03/13/17 23:07 APTT 61 SECONDS (21-34) H 03/13/17 23:07 - Constitutional Appears: Well - Head Exam Head Exam: ATRAUMATIC, NORMAL INSPECTION, NORMOCEPHALIC - Eye Exam Eye Exam: EOMI, Normal appearance, PERRL Pupil Exam: NORMAL ACCOMODATION, PERRL - ENT Exam ENT Exam: Mucous Membranes Moist, Normal Exam - Neck Exam Neck Exam: Full ROM, Normal Inspection. absent: Lymphadenopathy - Respiratory Exam Respiratory Exam: Decreased Breath Sounds - Cardiovascular Exam Cardiovascular Exam: REGULAR RHYTHM, +S1, +S2 - GI/Abdominal Exam GI & Abdominal Exam: Soft, Diminished Bowel Sounds - Rectal Exam Rectal Exam: Deferred
[2017-03-15] MEDS: Fluticasone-Salmeterol 250-50mcg Diskus INH SCH (19:54)
[2017-03-15] MEDS ORDERED: Home Med 1 UNIT (Atorvastatin Calcium [Atorvastatin Calcium] 80 MG) PO SCH (22:00)
[2017-03-16] MEDS: Cefepime IV 1 gm in Dextrose 1 GM/50 ML BAG IVPB SCH ×2 (00:22→13:00)
[2017-03-16] MEDS: Oxycodone/Acetaminophen 5/325 mg Tab PO PRN ×2 (03:05→18:29)
[2017-03-16] MEDS: Fluticasone Nasal 50 mcg/Spray NS SCH (09:56)
[2017-03-16] MEDS: Ammonium Lactate 12% Lotion (225 g) EXT SCH ×2 (09:58→18:30)
--- NOTE | 2017-03-16 14:19 | CP.PCM.PN ---
Subjective - Date & Time of Evaluation Date of Evaluation: 03/16/17 Time of Evaluation: 14:19 Objective - Vital Signs/Intake and Output Vital Signs (last 24 hours): Temp Pulse Resp BP Pulse Ox 97.8 F 91 H 22 89/43 L 90 L 03/16/17 04:00 03/16/17 04:15 03/16/17 12:04 03/16/17 04:15 03/16/17 11:42 Intake and Output: 03/16/17 03/16/17 06:59 18:59 Intake Total 900 Output Total 500 Balance 400 - Medications Medications: Current Medications Albuterol/Ipratropium (Duoneb 3 Mg/0.5 Mg (3 Ml) Ud) 3 ml IH Q6 PRN PRN Reason: Shortness of Breath Last Admin: 03/15/17 19:54 Dose: 3 ml Carvedilol (Coreg) 6.25 mg PO BID [facility] Last Admin: 03/16/17 09:56 Dose: 6.25 mg Dabigatran (Pradaxa) 75 mg PO BID [facility] Last Admin: 03/16/17 10:00 Dose: 75 mg Ezetimibe (Zetia) 10 mg PO HS [facility] Last Admin: 03/15/17 21:58 Dose: 10 mg Fluticasone Propionate (Flonase) 1 spr NS DAILY [facility] Last Admin: 03/16/17 09:56 Dose: 1 puff Doxycycline Hyclate 100 mg/ (Sodium Chloride) 100 mls @ 100 mls/hr IVPB Q12H [facility] Last Admin: 03/16/17 01:03 Dose: 100 mls/hr Cefepime HCl (Maxipime Iv 1 Gm Premix) 1 gm in 50 mls @ 100 mls/hr IVPB Q12H [facility] Last Admin: 03/16/17 00:22 Dose: 100 mls/hr Lactic Acid (Lac-Hydrin 12% Lotion (225 G)) 0 gm EXT BID [facility] Last Admin: 03/16/17 09:58 Dose: 1 each Lisinopril (Zestril) 2.5 mg PO DAILY [facility] Last Admin: 03/16/17 09:55 Dose: 2.5 mg Oxycodone/Acetaminophen (Percocet 5/325 Mg Tab) 1 tab PO Q6 PRN PRN Reason: Pain, moderate (4-7) Last Admin: 03/16/17 03:05 Dose: 1 tab Pantoprazole Sodium (Protonix Inj) 40 mg IVP DAILY [facility] Last Admin: 03/16/17 09:56 Dose: 40 mg Rosuvastatin Calcium (Crestor) 5 mg PO HS [facility] Last Admin: 03/15/17 21:58 Dose: 5 mg Fluticasone/Salmeterol (Advair Diskus 250/50) 1 puff INH RQ12 [facility] Last Admin: 03/15/17 19:54 Dose: 1 puff Sennosides (Senokot Tab) 17.2 mg PO HS [facility] Last Admin: 03/15/17 21:58 Dose: 17.2 mg Torsemide (Demadex) 20 mg PO DAILY [facility] Last Admin: 03/16/17 10:00 Dose: 20 mg Trazodone HCl (Desyrel) 100 mg PO HS [facility] Last Admin: 03/15/17 21:58 Dose: 100 mg - Labs Labs: 03/15/17 06:27 03/15/17 06:27 PT 31.5 SECONDS (9.7-12.2) H* 03/13/17 23:07 INR 2.7 03/13/17 23:07 APTT 61 SECONDS (21-34) H 03/13/17 23:07
--- NOTE | 2017-03-16 16:04 | VASCLAB ---
PROCEDURE: Lower Extremity Venous Duplex Exam. HISTORY: b/l leg swelling. PRIORS: None. TECHNIQUE: Bilateral common femoral, femoral, popliteal and posterior tibial, peroneal and great saphenous veins were evaluated. Flow was assessed with color Doppler, compressibility, assessment of phasic flow and augmentation response. Report prepared by Blaise Jane, ARI, RVT FINDINGS: RIGHT: 1. Common Femoral Vein: 1.1. Compressibility - Fully compressible: Thrombus - None : Flow - Phasic: Augmentation -Normal: Reflux - None. 2. Femoral Vein: 2.1. Compressibility - Fully compressible: Thrombus - None : Flow - Phasic: Augmentation -Normal: Reflux - None. 3. Popliteal Vein: 3.1. Compressibility - Fully compressible: Thrombus - None : Flow - Phasic: Augmentation -Normal: Reflux - None. 4. Posterior Tibial Vein: 4.1. Compressibility - Fully compressible: Thrombus - None: Flow - Phasic: Augmentation -Normal: Reflux - None. 5. Peroneal Vein: 5.1. Compressibility - Fully compressible: Thrombus - None: Flow - Phasic: Augmentation -Normal: Reflux - None. 6. Great Saphenous Vein: 6.1. Compressibility - Fully compressible: Thrombus - None: Flow - Phasic: Augmentation - Normal: Reflux - None. LEFT: 1. Common Femoral Vein: 1.1. Compressibility - Fully compressible: Thrombus - None: Flow - Phasic: Augmentation -Normal: Reflux - None. 2. Femoral Vein: 2.1. Compressibility - Fully compressible: Thrombus - None: Flow - Phasic: Augmentation -Normal: Reflux - None. 3. Popliteal Vein: 3.1. Compressibility - Fully compressible: Thrombus - None : Flow - Phasic: Augmentation -Normal: Reflux - None. 4. Posterior Tibial Vein: 4.1. Compressibility - Fully compressible: Thrombus - None: Flow - Phasic: Augmentation -Normal: Reflux - None. 5. Peroneal Vein: 5.1. Compressibility - Fully compressible: Thrombus - None: Flow - Phasic: Augmentation -Normal: Reflux - None. 6. Great Saphenous Vein: 6.1. Compressibility - : Thrombus - : Flow - : Augmentation - : Reflux - . OTHER FINDINGS: Right: None significant. Left: The left greater saphenous vein was previously harvested. IMPRESSION: Right: No evidence of deep or superficial vein thrombosis of the right lower extremity. Normal valve function noted of the right side. Left: No evidence of deep or superficial vein thrombosis of the left lower extremity. Normal valve function noted of the left side.
--- NOTE | 2017-03-16 19:31 | CP.PCM.PN ---
Subjective - Date & Time of Evaluation Date of Evaluation: 03/16/17 Time of Evaluation: 12:40 - Subjective Subjective: clinically same Objective - Vital Signs/Intake and Output Vital Signs (last 24 hours): Temp Pulse Resp BP Pulse Ox 97.8 F 96 H 22 89/43 L 93 L 03/16/17 16:00 03/16/17 18:00 03/16/17 16:00 03/16/17 04:15 03/16/17 12:00 Intake and Output: 03/16/17 03/17/17 18:59 06:59 Intake Total 320 Output Total 160 Balance 160 - Medications Medications: Current Medications Albuterol/Ipratropium (Duoneb 3 Mg/0.5 Mg (3 Ml) Ud) 3 ml IH Q6 PRN PRN Reason: Shortness of Breath Last Admin: 03/15/17 19:54 Dose: 3 ml Carvedilol (Coreg) 6.25 mg PO BID [facility] Last Admin: 03/16/17 18:29 Dose: 6.25 mg Dabigatran (Pradaxa) 75 mg PO BID [facility] Last Admin: 03/16/17 18:37 Dose: 75 mg Ezetimibe (Zetia) 10 mg PO HS [facility] Last Admin: 03/15/17 21:58 Dose: 10 mg Fluticasone Propionate (Flonase) 1 spr NS DAILY [facility] Last Admin: 03/16/17 09:56 Dose: 1 puff Doxycycline Hyclate 100 mg/ (Sodium Chloride) 100 mls @ 100 mls/hr IVPB Q12H [facility] Last Admin: 03/16/17 13:30 Dose: 100 mls/hr Cefepime HCl (Maxipime Iv 1 Gm Premix) 1 gm in 50 mls @ 100 mls/hr IVPB Q12H [facility] Last Admin: 03/16/17 13:00 Dose: 100 mls/hr Lactic Acid (Lac-Hydrin 12% Lotion (225 G)) 0 gm EXT BID [facility] Last Admin: 03/16/17 18:30 Dose: 1 each Lisinopril (Zestril) 2.5 mg PO DAILY [facility] Last Admin: 03/16/17 09:55 Dose: 2.5 mg Oxycodone/Acetaminophen (Percocet 5/325 Mg Tab) 1 tab PO Q6 PRN PRN Reason: Pain, moderate (4-7) Last Admin: 03/16/17 18:29 Dose: 1 tab Pantoprazole Sodium (Protonix Inj) 40 mg IVP DAILY [facility] Last Admin: 03/16/17 09:56 Dose: 40 mg Rosuvastatin Calcium (Crestor) 5 mg PO HS [facility] Last Admin: 03/15/17 21:58 Dose: 5 mg Fluticasone/Salmeterol (Advair Diskus 250/50) 1 puff INH RQ12 [facility] Last Admin: 03/15/17 19:54 Dose: 1 puff Sennosides (Senokot Tab) 17.2 mg PO HS [facility] Last Admin: 03/15/17 21:58 Dose: 17.2 mg Torsemide (Demadex) 20 mg PO DAILY [facility] Last Admin: 03/16/17 10:00 Dose: 20 mg Trazodone HCl (Desyrel) 100 mg PO HS [facility] Last Admin: 03/15/17 21:58 Dose: 100 mg - Labs Labs: 03/15/17 06:27 03/15/17 06:27 PT 31.5 SECONDS (9.7-12.2) H* 03/13/17 23:07 INR 2.7 03/13/17 23:07 APTT 61 SECONDS (21-34) H 03/13/17 23:07
[2017-03-16] MEDS: Albuterol-Ipratrop 3 mg / 0.5 (3 ml) UD IH PRN (19:53)
[2017-03-16] MEDS: Fluticasone-Salmeterol 250-50mcg Diskus INH SCH (19:53)
[2017-03-17] MEDS: Cefepime IV 1 gm in Dextrose 1 GM/50 ML BAG IVPB SCH ×2 (01:00→12:34)
[2017-03-17] MEDS: Oxycodone/Acetaminophen 5/325 mg Tab PO PRN ×4 (03:01→21:29)
--- NOTE | 2017-03-17 05:53 | CP.CCUPN ---
CCU Subjective - Physician Review Events Since Last Encounter (Free Text): Patient is a 80-year-old male admitted following a syncopal attack. Patient admitted to the intensive care unit with a possible acute respiratory insufficiency secondary to pneumonia. Initially patient was placed on BiPAP. And later high flow oxygen was given. Slowly patient was improving. Today patient is more awake and responding. Cough noted. Mucus production present. On examination: Vital signs are reviewed Temperature is 98.5 percent 90 respiration 25 saturation is 90% on high flow FiO2. Chest bilateral rales noted irregular heart sound. Abdomen soft nontender. Edema in the lower extremity is noted. In the past the patient was treated with the multiple treatment modalities for the chronic venous leg edema. Labs reviewed Creatinine is 2.8. WBC is 15.1. So far the blood culture nonspecific except contamination. Patient's medications include Patient is also taking paradoxical for possibly atrial fibrillation. Rest of the medications including The rounds and discussed with the residents. X-ray persistent infiltrative changes. Assessment and recommendation: 86-year-old male now admitted to the hospital at the intensive care unit with acute pneumonia. Acute respiratory failure, improving. Oxygenation is better. Patient can be transferred to the medical floor. He will be managed by the primary team. Critical Care Time Spent (in minutes): 45 CCU Objective - Vital Signs / Intake & Output Vital Signs (Last 4 hours): Vital Signs Temp Pulse Resp BP Pulse Ox 03/17/17 05:40 20 03/17/17 04:00 97.9 F 85 20 129/56 L 97 03/17/17 03:34 20 Intake and Output (Last 8hrs): Intake & Output 03/16/17 03/16/17 03/17/17 14:59 22:59 06:59 Intake Total 320 540 Output Total 160 175 Balance 160 -175 540 Intake: Intake, IV Amount 150 Right Forearm 150 Oral 320 390 Output: Urine 160 175 Urethral (Casas) 160 175 Emesis 0 Other: # Bowel Movements 0 0 - Physical Exam Head: Positive for: Atraumatic, Normocephalic Pupils: Positive for: PERRL Extroacular Muscles: Positive for: EOMI Conjunctiva: Positive for: Normal Mouth: Positive for: Moist Mucous Membranes Respiratory/Chest: Positive for: Clear to Auscultation, Accessory Muscle Use, Other (high flow) Cardiovascular: Positive for: Normal S1, S2 Abdomen: Positive for: Normal Bowel Sounds. Negative for: Tenderness, Distention Neurological: Positive for: CN II-XII Intact Skin: Positive for: Warm, Dry. Negative for: Rashes Psychiatric: Positive for: Alert, Oriented x 3 - Medications Active Medications: Active Medications Generic Name Dose Route Start Last Admin Trade Name Freq PRN Reason Stop Dose Admin Albuterol/Ipratropium 3 ml 03/14/17 01:39 03/16/17 19:53 Duoneb 3 Mg/0.5 Mg (3 Ml) Ud IH 3 ml Q6 PRN Administration Shortness of Breath Carvedilol 6.25 mg 03/15/17 10:00 03/16/17 18:29 Coreg PO 6.25 mg BID [facility] Administration Dabigatran 75 mg 03/14/17 10:00 03/16/17 18:37 Pradaxa PO 75 mg BID [facility] Administration Ezetimibe 10 mg 03/15/17 22:00 03/16/17 22:03 Zetia PO 10 mg HS [facility] Administration Fluticasone Propionate 1 spr 03/15/17 10:00 03/16/17 09:56 Flonase NS 1 puff DAILY [facility] Administration Doxycycline Hyclate 100 mg/ 100 mls @ 100 mls/hr 03/14/17 01:45 03/17/17 01: 45 Sodium Chloride IVPB 100 mls/hr Q12H [facility] Administration Cefepime HCl 1 gm in 50 mls @ 100 mls/hr 03/14/17 13:00 03/17/17 01:00 Maxipime Iv 1 Gm Premix IVPB 100 mls/hr Q12H [facility] Administration Lactic Acid 0 gm 03/14/17 18:00 03/16/17 18:30 Lac-Hydrin 12% Lotion (225 G) EXT 1 each BID [facility] Administration Lisinopril 2.5 mg 03/15/17 10:00 03/16/17 09:55 Zestril PO 2.5 mg DAILY [facility] Administration Oxycodone/Acetaminophen 1 tab 03/14/17 20:34 03/17/17 03:01 Percocet 5/325 Mg Tab PO 1 tab Q6 PRN Administration Pain, moderate (4-7) Pantoprazole Sodium 40 mg 03/15/17 10:00 03/16/17 09:56 Protonix Inj IVP 40 mg DAILY [facility] Administration Rosuvastatin Calcium 5 mg 03/15/17 22:00 03/16/17 22:03 Crestor PO 5 mg HS [facility] Administration Fluticasone/Salmeterol 1 puff 03/15/17 20:00 03/16/17 19:53 Advair Diskus 250/50 INH 1 puff RQ12 [facility] Administration Sennosides 17.2 mg 03/15/17 22:00 03/16/17 22:04 Senokot Tab PO 17.2 mg HS [facility] Administration Torsemide 20 mg 03/15/17 10:00 03/16/17 10:00 Demadex PO 20 mg DAILY [facility] Administration Trazodone HCl 100 mg 03/15/17 22:00 03/16/17 22:03 Desyrel PO 100 mg HS [facility] Administration - Patient Studies Lab Studies: Microbiology Studies 03/13/17 23:40 Blood Culture - Preliminary Blood NO GROWTH AFTER 48 HOURS Fingerstick Blood Sugar Results: 113 Critical Care Progress Note - Nutrition Nutrition: Nutrition Category Date Time Status Heart Healthy Diet [DIET] Diets 03/15/17 Breakfast Active
[2017-03-17] MEDS: Fluticasone Nasal 50 mcg/Spray NS SCH (09:10)
[2017-03-17] MEDS: Ammonium Lactate 12% Lotion (225 g) EXT SCH ×2 (09:31→17:22)
[2017-03-17] MEDS: Fluticasone-Salmeterol 250-50mcg Diskus INH SCH ×2 (10:08→20:09)
--- NOTE | 2017-03-17 12:18 | CP.PCM.PN ---
Subjective - Date & Time of Evaluation Date of Evaluation: 03/17/17 Time of Evaluation: 15:40 - Subjective Subjective: clinically same Objective - Vital Signs/Intake and Output Vital Signs (last 24 hours): Temp Pulse Resp BP Pulse Ox 97.9 F 85 20 129/56 L 97 03/17/17 04:00 03/17/17 04:00 03/17/17 08:52 03/17/17 04:00 03/17/17 04:00 Intake and Output: 03/17/17 03/17/17 06:59 18:59 Intake Total 540 Output Total 175 Balance 365 - Medications Medications: Current Medications Albuterol/Ipratropium (Duoneb 3 Mg/0.5 Mg (3 Ml) Ud) 3 ml IH Q6 PRN PRN Reason: Shortness of Breath Last Admin: 03/16/17 19:53 Dose: 3 ml Carvedilol (Coreg) 6.25 mg PO BID [facility] Last Admin: 03/17/17 09:05 Dose: 6.25 mg Ezetimibe (Zetia) 10 mg PO HS [facility] Last Admin: 03/16/17 22:03 Dose: 10 mg Fluticasone Propionate (Flonase) 1 spr NS DAILY [facility] Last Admin: 03/17/17 09:10 Dose: 1 puff Doxycycline Hyclate 100 mg/ (Sodium Chloride) 100 mls @ 100 mls/hr IVPB Q12H [facility] Last Admin: 03/17/17 01:45 Dose: 100 mls/hr Cefepime HCl (Maxipime Iv 1 Gm Premix) 1 gm in 50 mls @ 100 mls/hr IVPB Q12H [facility] Last Admin: 03/17/17 01:00 Dose: 100 mls/hr Lactic Acid (Lac-Hydrin 12% Lotion (225 G)) 0 gm EXT BID [facility] Last Admin: 03/17/17 09:31 Dose: 1 each Lisinopril (Zestril) 2.5 mg PO DAILY [facility] Last Admin: 03/16/17 09:55 Dose: 2.5 mg Oxycodone/Acetaminophen (Percocet 5/325 Mg Tab) 1 tab PO Q6 PRN PRN Reason: Pain, moderate (4-7) Last Admin: 03/17/17 09:06 Dose: 1 tab Pantoprazole Sodium (Protonix Inj) 40 mg IVP DAILY [facility] Last Admin: 03/17/17 09:10 Dose: 40 mg Rosuvastatin Calcium (Crestor) 5 mg PO HS [facility] Last Admin: 03/16/17 22:03 Dose: 5 mg Fluticasone/Salmeterol (Advair Diskus 250/50) 1 puff INH RQ12 [facility] Last Admin: 03/17/17 10:08 Dose: 1 puff Sennosides (Senokot Tab) 17.2 mg PO HS [facility] Last Admin: 03/16/17 22:04 Dose: 17.2 mg Torsemide (Demadex) 20 mg PO DAILY [facility] Last Admin: 03/17/17 09:24 Dose: 20 mg Trazodone HCl (Desyrel) 100 mg PO HS [facility] Last Admin: 03/16/17 22:03 Dose: 100 mg - Labs Labs: 03/15/17 06:27 03/15/17 06:27 PT 31.5 SECONDS (9.7-12.2) H* 03/13/17 23:07 INR 2.7 03/13/17 23:07 APTT 61 SECONDS (21-34) H 03/13/17 23:07
--- NOTE | 2017-03-17 14:01 | CP.PCM.PN ---
Subjective - Date & Time of Evaluation Date of Evaluation: 03/17/17 Time of Evaluation: 13:55 - Subjective Subjective: DISCUSSED PLAN FOR D/C WITH VIDAL LYNCH. CHART REVIEWED; STILL PENDING CARDIOLOGY CONSULT WITH DR. SALAZAR. I SPOKE WITH DR. SALAZAR AND PER HIM HE NOTIFIED "THE NURSE THAT DR. JUAREZ IS HIS APPLICATIONS CHEMIST." THERE IS NO DOCUMENTATION FROM NURSING STAFF OR MD, NOR IS THERE A NEW CONSULT ORDERED. I DISCUSSED THIS WITH VIDAL LYNCH AND PT'S PRIMARY RN PANCHITO, PT WILL NEED TO BE SEEN BY CARDIOLOGY PRIOR TO D/C DUE TO SYNCOPAL EPISODE TRANSMISSION ASSEMBLER AND REQUEST FOR PPM INTERROGATION. ALSO ADJUSTED PT'S PAIN MEDICATION PERCOCET 1 TAB Q6 PRN IS NOT RELIEVING PT'S PAIN. REVIEWED PT HOME MED LIST AND HE NORMALLY TAKES PERCOCET 2 TABS Q4 PRN. GIVEN THE RECENT SYNCOPAL EPISODE, WILL CHANGE PERCOCET TO 1 TAB PO Q4 HRS PRN. NO FURTHER ORDERS AT THIS TIME. Objective - Vital Signs/Intake and Output Vital Signs (last 24 hours): Temp Pulse Resp BP Pulse Ox 97.7 F 78 23 110/54 L 95 03/17/17 12:00 03/17/17 12:00 03/17/17 13:49 03/17/17 12:00 03/17/17 12:00 Intake and Output: 03/17/17 03/17/17 06:59 18:59 Intake Total 540 400 Output Total 175 700 Balance 365 -300 - Medications Medications: Current Medications Albuterol/Ipratropium (Duoneb 3 Mg/0.5 Mg (3 Ml) Ud) 3 ml IH Q6 PRN PRN Reason: Shortness of Breath Last Admin: 03/16/17 19:53 Dose: 3 ml Carvedilol (Coreg) 6.25 mg PO BID [facility] Last Admin: 03/17/17 09:05 Dose: 6.25 mg Ezetimibe (Zetia) 10 mg PO HS [facility] Last Admin: 03/16/17 22:03 Dose: 10 mg Fluticasone Propionate (Flonase) 1 spr NS DAILY [facility] Last Admin: 03/17/17 09:10 Dose: 1 puff Doxycycline Hyclate 100 mg/ (Sodium Chloride) 100 mls @ 100 mls/hr IVPB Q12H [facility] Last Admin: 03/17/17 13:16 Dose: 100 mls/hr Cefepime HCl (Maxipime Iv 1 Gm Premix) 1 gm in 50 mls @ 100 mls/hr IVPB Q12H [facility] Last Admin: 03/17/17 12:34 Dose: 100 mls/hr Lactic Acid (Lac-Hydrin 12% Lotion (225 G)) 0 gm EXT BID [facility] Last Admin: 03/17/17 09:31 Dose: 1 each Lisinopril (Zestril) 2.5 mg PO DAILY [facility] Last Admin: 03/17/17 10:00 Dose: 2.5 mg Oxycodone/Acetaminophen (Percocet 5/325 Mg Tab) 1 tab PO Q4 PRN PRN Reason: Pain, moderate (4-7) Stop: 03/20/17 16:01 Pantoprazole Sodium (Protonix Inj) 40 mg IVP DAILY [facility] Last Admin: 03/17/17 09:10 Dose: 40 mg Rosuvastatin Calcium (Crestor) 5 mg PO HS [facility] Last Admin: 03/16/17 22:03 Dose: 5 mg Fluticasone/Salmeterol (Advair Diskus 250/50) 1 puff INH RQ12 [facility] Last Admin: 03/17/17 10:08 Dose: 1 puff Sennosides (Senokot Tab) 17.2 mg PO HS [facility] Last Admin: 03/16/17 22:04 Dose: 17.2 mg Torsemide (Demadex) 20 mg PO DAILY [facility] Last Admin: 03/17/17 09:24 Dose: 20 mg Trazodone HCl (Desyrel) 100 mg PO HS [facility] Last Admin: 03/16/17 22:03 Dose: 100 mg - Labs Labs: 03/15/17 06:27 03/15/17 06:27 PT 31.5 SECONDS (9.7-12.2) H* 03/13/17 23:07 INR 2.7 03/13/17 23:07 APTT 61 SECONDS (21-34) H 03/13/17 23:07
--- NOTE | 2017-03-17 18:45 | CP.PCM.PN ---
Subjective - Date & Time of Evaluation Date of Evaluation: 03/17/17 Time of Evaluation: 18:44 Objective - Vital Signs/Intake and Output Vital Signs (last 24 hours): Temp Pulse Resp BP Pulse Ox 97.7 F 82 23 94/58 L 94 L 03/17/17 16:00 03/17/17 16:00 03/17/17 16:20 03/17/17 16:00 03/17/17 16:00 Intake and Output: 03/17/17 03/17/17 06:59 18:59 Intake Total 540 400 Output Total 175 700 Balance 365 -300 - Medications Medications: Current Medications Albuterol/Ipratropium (Duoneb 3 Mg/0.5 Mg (3 Ml) Ud) 3 ml IH Q6 PRN PRN Reason: Shortness of Breath Last Admin: 03/16/17 19:53 Dose: 3 ml Carvedilol (Coreg) 6.25 mg PO BID [facility] Last Admin: 03/17/17 17:27 Dose: Not Given Ezetimibe (Zetia) 10 mg PO [facility] Last Admin: 03/16/17 22:03 Dose: 10 mg Fluticasone Propionate (Flonase) 1 spr NS DAILY [facility] Last Admin: 03/17/17 09:10 Dose: 1 puff Doxycycline Hyclate 100 mg/ (Sodium Chloride) 100 mls @ 100 mls/hr IVPB Q12H [facility] Last Admin: 03/17/17 13:16 Dose: 100 mls/hr Cefepime HCl (Maxipime Iv 1 Gm Premix) 1 gm in 50 mls @ 100 mls/hr IVPB Q12H [facility] Last Admin: 03/17/17 12:34 Dose: 100 mls/hr Lactic Acid (Lac-Hydrin 12% Lotion (225 G)) 0 gm EXT BID [facility] Last Admin: 03/17/17 17:22 Dose: 1 each Lisinopril (Zestril) 2.5 mg PO DAILY [facility] Last Admin: 03/17/17 10:00 Dose: 2.5 mg Oxycodone/Acetaminophen (Percocet 5/325 Mg Tab) 1 tab PO Q4 PRN PRN Reason: Pain, moderate (4-7) Stop: 03/20/17 14:01 Last Admin: 03/17/17 14:16 Dose: 1 tab Pantoprazole Sodium (Protonix Inj) 40 mg IVP DAILY [facility] Last Admin: 03/17/17 09:10 Dose: 40 mg Rosuvastatin Calcium (Crestor) 5 mg PO HS [facility] Last Admin: 03/16/17 22:03 Dose: 5 mg Fluticasone/Salmeterol (Advair Diskus 250/50) 1 puff INH RQ12 [facility] Last Admin: 03/17/17 10:08 Dose: 1 puff Sennosides (Senokot Tab) 17.2 mg PO HS [facility] Last Admin: 03/16/17 22:04 Dose: 17.2 mg Torsemide (Demadex) 20 mg PO DAILY [facility] Last Admin: 03/17/17 09:24 Dose: 20 mg Trazodone HCl (Desyrel) 100 mg PO HS [facility] Last Admin: 03/16/17 22:03 Dose: 100 mg - Labs Labs: 03/15/17 06:27 03/15/17 06:27 PT 31.5 SECONDS (9.7-12.2) H* 03/13/17 23:07 INR 2.7 03/13/17 23:07 APTT 61 SECONDS (21-34) H 03/13/17 23:07
[2017-03-17] MEDS: Albuterol-Ipratrop 3 mg / 0.5 (3 ml) UD IH PRN (20:06)
--- NOTE | 2017-03-17 22:07 | CP.PCM.CON ---
History of Present Illness - History of Present Illness History of Present Illness: 86 year old man with a h/o cad, cabg, chronic atrial fibrillation. Pt was my patient several years ago, then was seeing Dr Brenda Sosa, and then Dr cage at [place]. Pt has had severe leg edema and scrotal edema for years. Pt has pulmonary HTN, and I advised him 5 years agoe to have a right and left heart cath to assess for post bypass related pericardial constriction. His insurance company denied it, and the patient did not return to the office for appeal. Since then he has had admission for a lasix drip, and this summer a ppm for slow afib (pt had pauses, no syncope). He takes daily diuretics. He now resides at [facility]. Pt has been to the wound clinic in [place]. Pt had some loose BM's stood up to ruinate and passed out, 911 was called. Review of Systems - Review of Systems All systems: reviewed and no additional remarkable complaints except (as above.) Past Patient History - Infectious Disease Hx of Infectious Diseases: None - Past Medical History & Family History Past Medical History?: Yes - Past Social History Smoking Status: Former Smoker - CARDIAC Hx Congestive Heart Failure: Yes Hx Hypertension: Yes - PULMONARY Hx Chronic Obstructive Pulmonary Disease (COPD): Yes - NEUROLOGICAL Hx Neurological Disorder: No - HEENT Hx HEENT Problems: No - RENAL Hx Chronic Kidney Disease: No - ENDOCRINE/METABOLIC Hx Endocrine Disorders: No - HEMATOLOGICAL/ONCOLOGICAL Hx Blood Disorders: No - INTEGUMENTARY Hx Dermatological Problems: Yes Hx Cellulitis: Yes - MUSCULOSKELETAL/RHEUMATOLOGICAL Hx Musculoskeletal Disorders: Yes Hx Falls: Yes - GASTROINTESTINAL Hx Gastrointestinal Disorders: Yes Hx Gastroesophageal Reflux: Yes - GENITOURINARY/GYNECOLOGICAL Hx Genitourinary Disorders: Yes Hx Prostate Problems: Yes - PSYCHIATRIC Hx Depression: Yes Hx Substance Use: No - SURGICAL HISTORY Hx Surgeries: Yes Other/Comment: PACEMAKER - ANESTHESIA Hx Anesthesia: Yes Meds Allergies/Adverse Reactions: Allergies Allergy/AdvReac Type Severity Reaction Status Date / Time No Known Allergies Allergy Verified 03/13/17 22:19 - Medications Medications: Current Medications Albuterol/Ipratropium (Duoneb 3 Mg/0.5 Mg (3 Ml) Ud) 3 ml IH Q6 PRN PRN Reason: Shortness of Breath Last Admin: 03/17/17 20:06 Dose: 3 ml Carvedilol (Coreg) 6.25 mg PO BID [facility] Last Admin: 03/17/17 17:27 Dose: Not Given Ezetimibe (Zetia) 10 mg PO [facility] Last Admin: 03/16/17 22:03 Dose: 10 mg Fluticasone Propionate (Flonase) 1 spr NS DAILY [facility] Last Admin: 03/17/17 09:10 Dose: 1 puff Doxycycline Hyclate 100 mg/ (Sodium Chloride) 100 mls @ 100 mls/hr IVPB Q12H [facility] Last Admin: 03/17/17 13:16 Dose: 100 mls/hr Cefepime HCl (Maxipime Iv 1 Gm Premix) 1 gm in 50 mls @ 100 mls/hr IVPB Q12H [facility] Last Admin: 03/17/17 12:34 Dose: 100 mls/hr Lactic Acid (Lac-Hydrin 12% Lotion (225 G)) 0 gm EXT BID [facility] Last Admin: 03/17/17 17:22 Dose: 1 each Lisinopril (Zestril) 2.5 mg PO DAILY [facility] Last Admin: 03/17/17 10:00 Dose: 2.5 mg Oxycodone/Acetaminophen (Percocet 5/325 Mg Tab) 1 tab PO Q4 PRN PRN Reason: Pain, moderate (4-7) Stop: 03/20/17 14:01 Last Admin: 03/17/17 21:29 Dose: 1 tab Pantoprazole Sodium (Protonix Inj) 40 mg IVP DAILY [facility] Last Admin: 03/17/17 09:10 Dose: 40 mg Rosuvastatin Calcium (Crestor) 5 mg PO [facility] Last Admin: 03/17/17 21:29 Dose: 5 mg Fluticasone/Salmeterol (Advair Diskus 250/50) 1 puff INH RQ12 [facility] Last Admin: 03/17/17 20:09 Dose: Not Given Sennosides (Senokot Tab) 17.2 mg PO [facility] Last Admin: 03/17/17 21:29 Dose: 17.2 mg Torsemide (Demadex) 20 mg PO DAILY [facility] Last Admin: 03/17/17 09:24 Dose: 20 mg Trazodone HCl (Desyrel) 100 mg PO [facility] Last Admin: 03/17/17 21:29 Dose: 100 mg Physical Exam - Constitutional Appears: Chronically Ill - Head Exam Head Exam: ATRAUMATIC - Eye Exam Eye Exam: EOMI - ENT Exam ENT Exam: Mucous Membranes Dry - Neck Exam Neck exam: Positive for: Normal Inspection - Respiratory Exam Respiratory Exam: Clear to Auscultation Bilateral, Rhonchi - Cardiovascular Exam Cardiovascular Exam: Irregular Rhythm - GI/Abdominal Exam GI & Abdominal Exam: Normal Bowel Sounds - Exam External exam: Swelling - Extremities Exam Extremities exam: Positive for: pedal edema - Neurological Exam Neurological exam: Alert, CN II-XII Intact, Oriented x3 - Psychiatric Exam Psychiatric exam: Normal Affect - Skin Skin Exam: Pallor Results - Vital Signs Recent Vital Signs: Last Vital Signs Temp 97.7 F 03/17/17 16:00 Pulse 79 03/17/17 18:00 Resp 16 03/17/17 20:09 BP 94/58 L 03/17/17 16:00 Pulse Ox 94 L 03/17/17 16:00 - Labs Result Diagrams: 03/15/17 06:27 03/15/17 06:27 - EKG Data EKG Interpreted by: Myself (atrial fib, v pacing) Assessment & Plan - Assessment and Plan (Free Text) Assessment: 1. Syncope sounds like classic orthostatic hypotension. Pt had had several BM's that day, takes diuretics, and stood up, resulting in syncope. However, [employer] ppm will be interrogated. 2. Echo review confirms borderline LV EF, dilated, RV with moderately reduced RVF and significant pulmonary HTN. Etiology of pt;s pulmonary HTN has not been determined, but it is certainly responsible for his lower body edema. Pt;s post cabg can have constrictive pericarditis, and once the patient is better, pneumonia resolved. then a right and left cath is advised to assess the patient. 3. last cr was 2.8. INR 2.7. Repeat labs in AM to determine Cr and appropriate dose of NOAC.
[2017-03-18] MEDS: Cefepime IV 1 gm in Dextrose 1 GM/50 ML BAG IVPB SCH ×2 (01:00→14:01)
[2017-03-18] MEDS: Oxycodone/Acetaminophen 5/325 mg Tab PO PRN ×4 (02:35→23:38)
[2017-03-18 06:37] LABS: INR 1.5; PROTHROMBIN TIME 16.9 SECONDS (9.7-12.2)
[2017-03-18 06:47] LABS: CALCIUM 8.3 mg/dl (8.6-10.4)
[2017-03-18] MEDS: Fluticasone-Salmeterol 250-50mcg Diskus INH SCH ×3 (09:04→20:00)
[2017-03-18] MEDS: Ammonium Lactate 12% Lotion (225 g) EXT SCH ×2 (09:54→17:59)
[2017-03-18] MEDS: Fluticasone Nasal 50 mcg/Spray NS SCH (14:48)
--- NOTE | 2017-03-18 15:20 | CP.PCM.PN ---
Subjective - Date & Time of Evaluation Date of Evaluation: 03/18/17 Time of Evaluation: 15:20 Objective - Vital Signs/Intake and Output Vital Signs (last 24 hours): Temp Pulse Resp BP Pulse Ox 98.3 F 71 18 110/66 95 03/18/17 12:00 03/18/17 12:18 03/18/17 14:17 03/18/17 12:18 03/18/17 12:18 Intake and Output: 03/18/17 03/18/17 06:59 18:59 Intake Total 870 830 Output Total 900 Balance -30 830 - Medications Medications: Current Medications Albuterol/Ipratropium (Duoneb 3 Mg/0.5 Mg (3 Ml) Ud) 3 ml IH Q6 PRN PRN Reason: Shortness of Breath Last Admin: 03/17/17 20:06 Dose: 3 ml Carvedilol (Coreg) 6.25 mg PO BID [facility] Last Admin: 03/18/17 09:55 Dose: 6.25 mg Ezetimibe (Zetia) 10 mg PO HS [facility] Last Admin: 03/17/17 23:00 Dose: 10 mg Fluticasone Propionate (Flonase) 1 spr NS DAILY [facility] Last Admin: 03/18/17 14:48 Dose: 1 puff Doxycycline Hyclate 100 mg/ (Sodium Chloride) 100 mls @ 100 mls/hr IVPB Q12H [facility] Last Admin: 03/18/17 14:13 Dose: 100 mls/hr Cefepime HCl (Maxipime Iv 1 Gm Premix) 1 gm in 50 mls @ 100 mls/hr IVPB Q12H [facility] Last Admin: 03/18/17 14:01 Dose: 100 mls/hr Lactic Acid (Lac-Hydrin 12% Lotion (225 G)) 0 gm EXT BID [facility] Last Admin: 03/18/17 09:54 Dose: 1 each Lisinopril (Zestril) 2.5 mg PO DAILY [facility] Last Admin: 03/18/17 09:53 Dose: 2.5 mg Oxycodone/Acetaminophen (Percocet 5/325 Mg Tab) 1 tab PO Q4 PRN PRN Reason: Pain, moderate (4-7) Stop: 03/20/17 14:01 Last Admin: 03/18/17 07:23 Dose: 1 tab Pantoprazole Sodium (Protonix Inj) 40 mg IVP DAILY [facility] Last Admin: 03/18/17 09:53 Dose: 40 mg Rosuvastatin Calcium (Crestor) 5 mg PO HS [facility] Last Admin: 03/17/17 21:29 Dose: 5 mg Fluticasone/Salmeterol (Advair Diskus 250/50) 1 puff INH RQ12 [facility] Last Admin: 03/18/17 14:06 Dose: 1 puff Sennosides (Senokot Tab) 17.2 mg PO HS [facility] Last Admin: 03/17/17 21:29 Dose: 17.2 mg Torsemide (Demadex) 20 mg PO DAILY [facility] Last Admin: 03/18/17 09:54 Dose: 20 mg Trazodone HCl (Desyrel) 100 mg PO HS [facility] Last Admin: 03/17/17 21:29 Dose: 100 mg - Labs Labs: 03/15/17 06:27 03/18/17 06:24 PT 16.9 SECONDS (9.7-12.2) H 03/18/17 06:28 INR 1.5 03/18/17 06:28 APTT 61 SECONDS (21-34) H 03/13/17 23:07
[2017-03-18] MEDS: Albuterol-Ipratrop 3 mg / 0.5 (3 ml) UD IH PRN (19:41)
[2017-03-19] MEDS: Cefepime IV 1 gm in Dextrose 1 GM/50 ML BAG IVPB SCH ×2 (00:17→12:48)
--- NOTE | 2017-03-19 00:40 | CARD ---
APPROVED REPORT EKG Measurement Heart [id number] <Conclusion> Ventricular-paced rhythm Abnormal ECG
[2017-03-19] MEDS: Fluticasone-Salmeterol 250-50mcg Diskus INH SCH ×2 (07:30→19:55)
[2017-03-19] MEDS: Albuterol-Ipratrop 3 mg / 0.5 (3 ml) UD IH PRN ×2 (07:40→14:44)
[2017-03-19] MEDS: Oxycodone/Acetaminophen 5/325 mg Tab PO PRN ×3 (10:29→22:49)
[2017-03-19] MEDS: Fluticasone Nasal 50 mcg/Spray NS SCH (10:56)
[2017-03-19] MEDS: Ammonium Lactate 12% Lotion (225 g) EXT SCH ×2 (10:57→18:33)
--- NOTE | 2017-03-19 12:22 | CP.PCM.PN ---
Subjective - Date & Time of Evaluation Date of Evaluation: 03/19/17 Time of Evaluation: 12:21 Objective - Vital Signs/Intake and Output Vital Signs (last 24 hours): Temp Pulse Resp BP Pulse Ox 98.1 F 88 19 128/78 92 L 03/19/17 10:00 03/19/17 10:34 03/19/17 10:34 03/19/17 10:34 03/19/17 10:34 Intake and Output: 03/19/17 03/19/17 06:59 18:59 Intake Total 290 250 Output Total 550 300 Balance -260 -50 - Medications Medications: Current Medications Albuterol/Ipratropium (Duoneb 3 Mg/0.5 Mg (3 Ml) Ud) 3 ml IH Q6 PRN PRN Reason: Shortness of Breath Last Admin: 03/19/17 07:40 Dose: 3 ml Carvedilol (Coreg) 6.25 mg PO BID [facility] Last Admin: 03/19/17 10:30 Dose: 6.25 mg Ezetimibe (Zetia) 10 mg PO HS [facility] Last Admin: 03/18/17 23:30 Dose: 10 mg Fluticasone Propionate (Flonase) 1 spr NS DAILY [facility] Last Admin: 03/19/17 10:56 Dose: 1 puff Doxycycline Hyclate 100 mg/ (Sodium Chloride) 100 mls @ 100 mls/hr IVPB Q12H [facility] Last Admin: 03/19/17 02:07 Dose: 100 mls/hr Cefepime HCl (Maxipime Iv 1 Gm Premix) 1 gm in 50 mls @ 100 mls/hr IVPB Q12H [facility] Last Admin: 03/19/17 00:17 Dose: 100 mls/hr Lactic Acid (Lac-Hydrin 12% Lotion (225 G)) 0 gm EXT BID [facility] Last Admin: 03/19/17 10:57 Dose: 1 each Lisinopril (Zestril) 2.5 mg PO DAILY [facility] Last Admin: 03/19/17 10:30 Dose: 2.5 mg Oxycodone/Acetaminophen (Percocet 5/325 Mg Tab) 1 tab PO Q4 PRN PRN Reason: Pain, moderate (4-7) Stop: 03/20/17 14:01 Last Admin: 03/19/17 10:29 Dose: 1 tab Pantoprazole Sodium (Protonix Inj) 40 mg IVP DAILY [facility] Last Admin: 03/19/17 11:01 Dose: 40 mg Rosuvastatin Calcium (Crestor) 5 mg PO HS [facility] Last Admin: 03/18/17 23:31 Dose: 5 mg Fluticasone/Salmeterol (Advair Diskus 250/50) 1 puff INH RQ12 [facility] Last Admin: 03/19/17 07:30 Dose: 1 puff Sennosides (Senokot Tab) 17.2 mg PO HS [facility] Last Admin: 03/18/17 23:29 Dose: 17.2 mg Torsemide (Demadex) 20 mg PO DAILY [facility] Last Admin: 03/19/17 10:30 Dose: 20 mg Trazodone HCl (Desyrel) 100 mg PO [facility] Last Admin: 03/19/17 00:16 Dose: 100 mg - Labs Labs: 03/15/17 06:27 03/18/17 06:24 PT 16.9 SECONDS (9.7-12.2) H 03/18/17 06:28 INR 1.5 03/18/17 06:28 APTT 61 SECONDS (21-34) H 03/13/17 23:07
--- NOTE | 2017-03-19 13:30 | CP.PCM.CON ---
History of Present Illness - History of Present Illness History of Present Illness: 86 year old male familiar to Dr. Eli seen for b/l LE edema and venous stasis dermatitis. Patient states that he feels the swelling in his legs have gone down and states that overall his legs feel improved. Is AAO x 3 and NAD, resting comfortably in chair at bedside. Denies any further pedal complaints. Denies recent N/V/F/C/CP/D/posterior calf pain with squeeze. States that he has been a little short of breath over the last few days Review of Systems - Review of Systems Review of Systems: ROS as per HPI Past Patient History - Infectious Disease Hx of Infectious Diseases: None - Past Medical History & Family History Past Medical History?: Yes - Past Social History Smoking Status: Former Smoker - CARDIAC Hx Congestive Heart Failure: Yes Hx Hypertension: Yes - PULMONARY Hx Chronic Obstructive Pulmonary Disease (COPD): Yes - NEUROLOGICAL Hx Neurological Disorder: No - HEENT Hx HEENT Problems: No - RENAL Hx Chronic Kidney Disease: No - ENDOCRINE/METABOLIC Hx Endocrine Disorders: No - HEMATOLOGICAL/ONCOLOGICAL Hx Blood Disorders: No - INTEGUMENTARY Hx Dermatological Problems: Yes Hx Cellulitis: Yes - MUSCULOSKELETAL/RHEUMATOLOGICAL Hx Musculoskeletal Disorders: Yes Hx Falls: Yes - GASTROINTESTINAL Hx Gastrointestinal Disorders: Yes Hx Gastroesophageal Reflux: Yes - GENITOURINARY/GYNECOLOGICAL Hx Genitourinary Disorders: Yes Hx Prostate Problems: Yes - PSYCHIATRIC Hx Depression: Yes Hx Substance Use: No - SURGICAL HISTORY Hx Surgeries: Yes Other/Comment: PACEMAKER - ANESTHESIA Hx Anesthesia: Yes Meds Allergies/Adverse Reactions: Allergies Allergy/AdvReac Type Severity Reaction Status Date / Time No Known Allergies Allergy Verified 03/13/17 22:19 - Medications Medications: Current Medications Albuterol/Ipratropium (Duoneb 3 Mg/0.5 Mg (3 Ml) Ud) 3 ml IH Q6 PRN PRN Reason: Shortness of Breath Last Admin: 03/19/17 07:40 Dose: 3 ml Carvedilol (Coreg) 6.25 mg PO BID [facility] Last Admin: 03/19/17 10:30 Dose: 6.25 mg Ezetimibe (Zetia) 10 mg PO HS [facility] Last Admin: 03/18/17 23:30 Dose: 10 mg Fluticasone Propionate (Flonase) 1 spr NS DAILY [facility] Last Admin: 03/19/17 10:56 Dose: 1 puff Doxycycline Hyclate 100 mg/ (Sodium Chloride) 100 mls @ 100 mls/hr IVPB Q12H [facility] Last Admin: 03/19/17 12:46 Dose: 100 mls/hr Cefepime HCl (Maxipime Iv 1 Gm Premix) 1 gm in 50 mls @ 100 mls/hr IVPB Q12H [facility] Last Admin: 03/19/17 12:48 Dose: 100 mls/hr Lactic Acid (Lac-Hydrin 12% Lotion (225 G)) 0 gm EXT BID [facility] Last Admin: 03/19/17 10:57 Dose: 1 each Lisinopril (Zestril) 2.5 mg PO DAILY [facility] Last Admin: 03/19/17 10:30 Dose: 2.5 mg Oxycodone/Acetaminophen (Percocet 5/325 Mg Tab) 1 tab PO Q4 PRN PRN Reason: Pain, moderate (4-7) Stop: 03/20/17 14:01 Last Admin: 03/19/17 10:29 Dose: 1 tab Pantoprazole Sodium (Protonix Inj) 40 mg IVP DAILY [facility] Last Admin: 03/19/17 11:01 Dose: 40 mg Rosuvastatin Calcium (Crestor) 5 mg PO HS [facility] Last Admin: 03/18/17 23:31 Dose: 5 mg Fluticasone/Salmeterol (Advair Diskus 250/50) 1 puff INH RQ12 [facility] Last Admin: 03/19/17 07:30 Dose: 1 puff Sennosides (Senokot Tab) 17.2 mg PO HS [facility] Last Admin: 03/18/17 23:29 Dose: 17.2 mg Torsemide (Demadex) 20 mg PO DAILY [facility] Last Admin: 03/19/17 10:30 Dose: 20 mg Trazodone HCl (Desyrel) 100 mg PO HS [facility] Last Admin: 03/19/17 00:16 Dose: 100 mg Physical Exam - Constitutional Appears: Well, Non-toxic, No Acute Distress - Extremities Exam Additional comments: B/l LE focused exam Vasc: DP/PT pulses palpable 1/4 b/l. 2+ pitting edema noted to b/l LE. CFT < 3 seconds to all digits. Skin temperature warm to warm from proximal to distal Neuro: Epicritic and protective sensation grossly intact b/l Derm: Venous stasis dermatits changes noted to b/l shins with hemosiderin deposits present. Otherwise no open lesions, wounds, maceration, xerosis, abnormal pigmentation or abnormal growths noted. Nails are dystrophic and thickened but of appropriate length MSK: No POP to b/l LE. No gross deformities noted b/l - Neurological Exam Neurological exam: Alert, Oriented x3 - Psychiatric Exam Psychiatric exam: Normal Affect, Normal Mood Results - Vital Signs Recent Vital Signs: Last Vital Signs Temp 98.1 F 03/19/17 10:00 Pulse 88 03/19/17 10:34 Resp 19 03/19/17 10:34 BP 128/78 03/19/17 10:34 Pulse Ox 92 L 03/19/17 10:34 - Labs Result Diagrams: 03/15/17 06:27 03/18/17 06:24 Assessment & Plan - Assessment and Plan (Free Text) Assessment: 86 year old male seen for venous stasis insufficiency with dermatitis Plan: Patient seen and evaluated at bedside with attending Dr. Eli Afebrile WBC 15.1 B/l legs wrapped with compressive TANIKA bandaging Patient instructed to keep dressings c/d/i Patient encouraged to keep legs elevated as much as possible and to walk whenever possible No plan for surgical intervention at this time Podiatry will continue to follow while patient in house - Date & Time Date: 03/19/17 Time: 13:32
--- NOTE | 2017-03-19 14:01 | CP.PCM.PN ---
Subjective - Date & Time of Evaluation Date of Evaluation: 03/19/17 Time of Evaluation: 13:58 - Subjective Subjective: Pt eating better, legs less swollen Objective - Vital Signs/Intake and Output Vital Signs (last 24 hours): Temp Pulse Resp BP Pulse Ox 98.1 F 88 19 128/78 92 L 03/19/17 10:00 03/19/17 10:34 03/19/17 10:34 03/19/17 10:34 03/19/17 10:34 Intake and Output: 03/19/17 03/19/17 06:59 18:59 Intake Total 290 550 Output Total 550 300 Balance -260 250 - Medications Medications: Current Medications Albuterol/Ipratropium (Duoneb 3 Mg/0.5 Mg (3 Ml) Ud) 3 ml IH Q6 PRN PRN Reason: Shortness of Breath Last Admin: 03/19/17 07:40 Dose: 3 ml Carvedilol (Coreg) 6.25 mg PO BID [facility] Last Admin: 03/19/17 10:30 Dose: 6.25 mg Ezetimibe (Zetia) 10 mg PO HS [facility] Last Admin: 03/18/17 23:30 Dose: 10 mg Fluticasone Propionate (Flonase) 1 spr NS DAILY [facility] Last Admin: 03/19/17 10:56 Dose: 1 puff Doxycycline Hyclate 100 mg/ (Sodium Chloride) 100 mls @ 100 mls/hr IVPB Q12H [facility] Last Admin: 03/19/17 12:46 Dose: 100 mls/hr Cefepime HCl (Maxipime Iv 1 Gm Premix) 1 gm in 50 mls @ 100 mls/hr IVPB Q12H [facility] Last Admin: 03/19/17 12:48 Dose: 100 mls/hr Lactic Acid (Lac-Hydrin 12% Lotion (225 G)) 0 gm EXT BID [facility] Last Admin: 03/19/17 10:57 Dose: 1 each Lisinopril (Zestril) 2.5 mg PO DAILY [facility] Last Admin: 03/19/17 10:30 Dose: 2.5 mg Oxycodone/Acetaminophen (Percocet 5/325 Mg Tab) 1 tab PO Q4 PRN PRN Reason: Pain, moderate (4-7) Stop: 03/20/17 14:01 Last Admin: 03/19/17 10:29 Dose: 1 tab Pantoprazole Sodium (Protonix Inj) 40 mg IVP DAILY [facility] Last Admin: 03/19/17 11:01 Dose: 40 mg Rosuvastatin Calcium (Crestor) 5 mg PO HS [facility] Last Admin: 03/18/17 23:31 Dose: 5 mg Fluticasone/Salmeterol (Advair Diskus 250/50) 1 puff INH RQ12 [facility] Last Admin: 03/19/17 07:30 Dose: 1 puff Sennosides (Senokot Tab) 17.2 mg PO HS [facility] Last Admin: 03/18/17 23:29 Dose: 17.2 mg Torsemide (Demadex) 20 mg PO DAILY [facility] Last Admin: 03/19/17 10:30 Dose: 20 mg Trazodone HCl (Desyrel) 100 mg PO HS [facility] Last Admin: 03/19/17 00:16 Dose: 100 mg - Labs Labs: 03/15/17 06:27 03/18/17 06:24 PT 16.9 SECONDS (9.7-12.2) H 03/18/17 06:28 INR 1.5 03/18/17 06:28 APTT 61 SECONDS (21-34) H 03/13/17 23:07 - Constitutional Appears: Chronically Ill - Head Exam Head Exam: NORMAL INSPECTION - Eye Exam Eye Exam: EOMI - ENT Exam ENT Exam: Mucous Membranes Moist - Respiratory Exam Respiratory Exam: Rales - Cardiovascular Exam Cardiovascular Exam: Irregular Rhythm - GI/Abdominal Exam GI & Abdominal Exam: Normal Bowel Sounds - Extremities Exam Extremities Exam: Pedal Edema - Back Exam Back Exam: NORMAL INSPECTION - Neurological Exam Neurological Exam: Alert, Awake, Oriented x3 - Psychiatric Exam Psychiatric exam: Anxious, Normal Affect - Skin Skin Exam: Erythema, Mottled, Petechiae Assessment and Plan - Assessment and Plan (Free Text) Assessment: 1. Atrial Fib: restart noac: eliquis 5 bid 2. No cx for several days, and lungs not clear ; repeat cxr 3. afib rate is ok 4. Pt has severe lower body edema for pulmonary HTN and a right and left cath is advised. this is a long standing problemn and cath is not urgent. Pt will start eliquis for now, continue current treatment and will have cath if and when he agrees.
--- NOTE | 2017-03-19 15:10 | CP.PCM.PN ---
Subjective - Date & Time of Evaluation Date of Evaluation: 03/19/17 Time of Evaluation: 12:00 - Subjective Subjective: clinically same Objective - Vital Signs/Intake and Output Vital Signs (last 24 hours): Temp Pulse Resp BP Pulse Ox 98.1 F 88 19 128/78 92 L 03/19/17 10:00 03/19/17 10:34 03/19/17 10:34 03/19/17 10:34 03/19/17 10:34 Intake and Output: 03/19/17 03/19/17 06:59 18:59 Intake Total 290 550 Output Total 550 300 Balance -260 250 - Medications Medications: Current Medications Albuterol/Ipratropium (Duoneb 3 Mg/0.5 Mg (3 Ml) Ud) 3 ml IH Q6 PRN PRN Reason: Shortness of Breath Last Admin: 03/19/17 14:44 Dose: 3 ml Apixaban (Eliquis) 5 mg PO DAILY [facility] Carvedilol (Coreg) 6.25 mg PO BID [facility] Last Admin: 03/19/17 10:30 Dose: 6.25 mg Ezetimibe (Zetia) 10 mg PO HS [facility] Last Admin: 03/18/17 23:30 Dose: 10 mg Fluticasone Propionate (Flonase) 1 spr NS DAILY [facility] Last Admin: 03/19/17 10:56 Dose: 1 puff Doxycycline Hyclate 100 mg/ (Sodium Chloride) 100 mls @ 100 mls/hr IVPB Q12H [facility] Last Admin: 03/19/17 12:46 Dose: 100 mls/hr Cefepime HCl (Maxipime Iv 1 Gm Premix) 1 gm in 50 mls @ 100 mls/hr IVPB Q12H [facility] Last Admin: 03/19/17 12:48 Dose: 100 mls/hr Lactic Acid (Lac-Hydrin 12% Lotion (225 G)) 0 gm EXT BID [facility] Last Admin: 03/19/17 10:57 Dose: 1 each Lisinopril (Zestril) 2.5 mg PO DAILY [facility] Last Admin: 03/19/17 10:30 Dose: 2.5 mg Oxycodone/Acetaminophen (Percocet 5/325 Mg Tab) 1 tab PO Q4 PRN PRN Reason: Pain, moderate (4-7) Stop: 03/20/17 14:01 Last Admin: 03/19/17 10:29 Dose: 1 tab Pantoprazole Sodium (Protonix Inj) 40 mg IVP DAILY [facility] Last Admin: 03/19/17 11:01 Dose: 40 mg Rosuvastatin Calcium (Crestor) 5 mg PO [facility] Last Admin: 03/18/17 23:31 Dose: 5 mg Fluticasone/Salmeterol (Advair Diskus 250/50) 1 puff INH RQ12 [facility] Last Admin: 03/19/17 07:30 Dose: 1 puff Sennosides (Senokot Tab) 17.2 mg PO [facility] Last Admin: 03/18/17 23:29 Dose: 17.2 mg Torsemide (Demadex) 20 mg PO DAILY [facility] Last Admin: 03/19/17 10:30 Dose: 20 mg Trazodone HCl (Desyrel) 100 mg PO [facility] Last Admin: 03/19/17 00:16 Dose: 100 mg - Labs Labs: 03/15/17 06:27 03/18/17 06:24 PT 16.9 SECONDS (9.7-12.2) H 03/18/17 06:28 INR 1.5 03/18/17 06:28 APTT 61 SECONDS (21-34) H 03/13/17 23:07 - Constitutional Appears: Well - Head Exam Head Exam: ATRAUMATIC, NORMAL INSPECTION, NORMOCEPHALIC - Eye Exam Eye Exam: EOMI, Normal appearance, PERRL Pupil Exam: NORMAL ACCOMODATION, PERRL - ENT Exam ENT Exam: Mucous Membranes Moist, Normal Exam - Neck Exam Neck Exam: Full ROM, Normal Inspection. absent: Lymphadenopathy - Respiratory Exam Respiratory Exam: Decreased Breath Sounds - Cardiovascular Exam Cardiovascular Exam: REGULAR RHYTHM, +S1, +S2 - GI/Abdominal Exam GI & Abdominal Exam: Soft, Diminished Bowel Sounds - Rectal Exam Rectal Exam: Deferred
--- NOTE | 2017-03-19 16:40 | RAD ---
Chest x-ray two views History: Congestion. Comparison: 03/13/2017 Findings: Small to moderate left pleural effusion. Prominent confluent consolidative changes seen within the right mid and lower lung zones. Post treatment interval followup would be helpful to ensure resolution. Diffuse increased interstitial lung markings. Right paratracheal airspace opacity. Right hilar prominence. Biapical pleural thickening. Status post median sternotomy and CABG. Cardiomegaly. Left-sided pacemaker. Degenerative changes in the spine and shoulders. Impression: Small to moderate left pleural effusion. Prominent confluent consolidative changes seen within the right mid and lower lung zones. Post treatment interval followup would be helpful to ensure resolution. Diffuse increased interstitial lung markings. Right paratracheal airspace opacity. Right hilar prominence.
[2017-03-20] MEDS: Cefepime IV 1 gm in Dextrose 1 GM/50 ML BAG IVPB SCH ×2 (01:00→13:54)
[2017-03-20] MEDS: Oxycodone/Acetaminophen 5/325 mg Tab PO PRN ×3 (02:55→21:24)
[2017-03-20] MEDS: Fluticasone-Salmeterol 250-50mcg Diskus INH SCH ×2 (07:36→21:19)
[2017-03-20] MEDS: Fluticasone Nasal 50 mcg/Spray NS SCH (09:57)
[2017-03-20] MEDS: Ammonium Lactate 12% Lotion (225 g) EXT SCH ×2 (09:57→18:14)
--- NOTE | 2017-03-20 18:00 | CP.PCM.PN ---
Subjective - Date & Time of Evaluation Date of Evaluation: 03/20/17 Time of Evaluation: 10:40 - Subjective Subjective: clinically same Objective - Vital Signs/Intake and Output Vital Signs (last 24 hours): Temp Pulse Resp BP Pulse Ox 98 F 90 14 100/58 L 98 03/20/17 14:00 03/20/17 14:00 03/20/17 14:00 03/20/17 14:00 03/20/17 14:00 Intake and Output: 03/20/17 03/20/17 06:59 18:59 Intake Total 450 500 Output Total 775 300 Balance -325 200 - Medications Medications: Current Medications Albuterol/Ipratropium (Duoneb 3 Mg/0.5 Mg (3 Ml) Ud) 3 ml IH Q6 PRN PRN Reason: Shortness of Breath Last Admin: 03/19/17 14:44 Dose: 3 ml Apixaban (Eliquis) 5 mg PO DAILY [facility] Last Admin: 03/20/17 09:35 Dose: 5 mg Carvedilol (Coreg) 6.25 mg PO BID [facility] Last Admin: 03/20/17 09:34 Dose: 6.25 mg Ezetimibe (Zetia) 10 mg PO HS [facility] Last Admin: 03/19/17 22:48 Dose: 10 mg Fluticasone Propionate (Flonase) 1 spr NS DAILY [facility] Last Admin: 03/20/17 09:57 Dose: 1 puff Doxycycline Hyclate 100 mg/ (Sodium Chloride) 100 mls @ 100 mls/hr IVPB Q12H [facility] Last Admin: 03/20/17 13:53 Dose: 100 mls/hr Cefepime HCl (Maxipime Iv 1 Gm Premix) 1 gm in 50 mls @ 100 mls/hr IVPB Q12H [facility] Last Admin: 03/20/17 13:54 Dose: 100 mls/hr Lactic Acid (Lac-Hydrin 12% Lotion (225 G)) 0 gm EXT BID [facility] Last Admin: 03/20/17 09:57 Dose: 1 each Lisinopril (Zestril) 2.5 mg PO DAILY [facility] Last Admin: 03/20/17 09:35 Dose: 2.5 mg Pantoprazole Sodium (Protonix Inj) 40 mg IVP DAILY [facility] Last Admin: 03/20/17 09:35 Dose: 40 mg Rosuvastatin Calcium (Crestor) 5 mg PO [facility] Last Admin: 03/19/17 22:50 Dose: 5 mg Fluticasone/Salmeterol (Advair Diskus 250/50) 1 puff INH RQ12 [facility] Last Admin: 03/20/17 07:36 Dose: Not Given Sennosides (Senokot Tab) 17.2 mg PO [facility] Last Admin: 03/19/17 22:48 Dose: 17.2 mg Torsemide (Demadex) 20 mg PO DAILY [facility] Last Admin: 03/20/17 09:34 Dose: 20 mg Trazodone HCl (Desyrel) 100 mg PO [facility] Last Admin: 03/20/17 01:56 Dose: 100 mg - Labs Labs: 03/15/17 06:27 03/18/17 06:24 PT 16.9 SECONDS (9.7-12.2) H 03/18/17 06:28 INR 1.5 03/18/17 06:28 APTT 61 SECONDS (21-34) H 03/13/17 23:07 - Constitutional Appears: Well - Head Exam Head Exam: ATRAUMATIC, NORMAL INSPECTION, NORMOCEPHALIC - Eye Exam Eye Exam: EOMI, Normal appearance, PERRL Pupil Exam: NORMAL ACCOMODATION, PERRL - ENT Exam ENT Exam: Mucous Membranes Moist, Normal Exam - Neck Exam Neck Exam: Full ROM, Normal Inspection. absent: Lymphadenopathy - Respiratory Exam Respiratory Exam: Decreased Breath Sounds - Cardiovascular Exam Cardiovascular Exam: REGULAR RHYTHM, +S1, +S2 - GI/Abdominal Exam GI & Abdominal Exam: Soft, Diminished Bowel Sounds - Rectal Exam Rectal Exam: Deferred
--- NOTE | 2017-03-20 18:59 | CP.PCM.PN ---
Subjective - Date & Time of Evaluation Date of Evaluation: 03/20/17 Time of Evaluation: 18:59 Objective - Vital Signs/Intake and Output Vital Signs (last 24 hours): Temp Pulse Resp BP Pulse Ox 97.7 F 68 18 110/65 95 03/20/17 16:00 03/20/17 16:00 03/20/17 16:00 03/20/17 16:00 03/20/17 16:00 Intake and Output: 03/20/17 03/20/17 06:59 18:59 Intake Total 450 500 Output Total 775 300 Balance -325 200 - Medications Medications: Current Medications Albuterol/Ipratropium (Duoneb 3 Mg/0.5 Mg (3 Ml) Ud) 3 ml IH Q6 PRN PRN Reason: Shortness of Breath Last Admin: 03/19/17 14:44 Dose: 3 ml Apixaban (Eliquis) 5 mg PO DAILY [facility] Last Admin: 03/20/17 09:35 Dose: 5 mg Carvedilol (Coreg) 6.25 mg PO BID [facility] Last Admin: 03/20/17 18:10 Dose: 6.25 mg Ezetimibe (Zetia) 10 mg PO HS [facility] Last Admin: 03/19/17 22:48 Dose: 10 mg Fluticasone Propionate (Flonase) 1 spr NS DAILY [facility] Last Admin: 03/20/17 09:57 Dose: 1 puff Doxycycline Hyclate 100 mg/ (Sodium Chloride) 100 mls @ 100 mls/hr IVPB Q12H [facility] Last Admin: 03/20/17 13:53 Dose: 100 mls/hr Cefepime HCl (Maxipime Iv 1 Gm Premix) 1 gm in 50 mls @ 100 mls/hr IVPB Q12H [facility] Last Admin: 03/20/17 13:54 Dose: 100 mls/hr Lactic Acid (Lac-Hydrin 12% Lotion (225 G)) 0 gm EXT BID [facility] Last Admin: 03/20/17 18:14 Dose: 1 each Lisinopril (Zestril) 2.5 mg PO DAILY [facility] Last Admin: 03/20/17 09:35 Dose: 2.5 mg Pantoprazole Sodium (Protonix Inj) 40 mg IVP DAILY [facility] Last Admin: 03/20/17 09:35 Dose: 40 mg Rosuvastatin Calcium (Crestor) 5 mg PO HS [facility] Last Admin: 03/19/17 22:50 Dose: 5 mg Fluticasone/Salmeterol (Advair Diskus 250/50) 1 puff INH RQ12 [facility] Last Admin: 03/20/17 07:36 Dose: Not Given Sennosides (Senokot Tab) 17.2 mg PO HS [facility] Last Admin: 03/19/17 22:48 Dose: 17.2 mg Torsemide (Demadex) 20 mg PO DAILY [facility] Last Admin: 03/20/17 09:34 Dose: 20 mg Trazodone HCl (Desyrel) 100 mg PO HS [facility] Last Admin: 03/20/17 01:56 Dose: 100 mg - Labs Labs: 03/15/17 06:27 03/18/17 06:24 PT 16.9 SECONDS (9.7-12.2) H 03/18/17 06:28 INR 1.5 03/18/17 06:28 APTT 61 SECONDS (21-34) H 03/13/17 23:07
[2017-03-21] MEDS: Cefepime IV 1 gm in Dextrose 1 GM/50 ML BAG IVPB SCH ×2 (00:51→12:05)
[2017-03-21 01:11] VITALS: RESP 20
[2017-03-21] MEDS: Oxycodone/Acetaminophen 5/325 mg Tab PO PRN ×3 (03:21→23:35)
[2017-03-21] MEDS: Fluticasone-Salmeterol 250-50mcg Diskus INH SCH ×2 (07:42→20:37)
[2017-03-21] MEDS ORDERED: PETROLATUM TOP SCH (10:00)
[2017-03-21] MEDS ORDERED: [UNRECOGNIZED DRUG - OTHER] TOP SCH (10:00)
[2017-03-21] MEDS: Megestrol Acetate 40 mg/ml Cup PO SCH (10:39)
[2017-03-21] MEDS: Multiple Vitamins Tab PO SCH (10:39)
[2017-03-21] MEDS: Ammonium Lactate 12% Lotion (225 g) EXT SCH ×2 (10:48→18:56)
[2017-03-21] MEDS: Fluticasone Nasal 50 mcg/Spray NS SCH (10:50)
--- NOTE | 2017-03-21 18:44 | CP.PCM.PN ---
Subjective - Date & Time of Evaluation Date of Evaluation: 03/21/17 Time of Evaluation: 18:44 Objective - Vital Signs/Intake and Output Vital Signs (last 24 hours): Temp Pulse Resp BP Pulse Ox 98.3 F 85 20 115/68 88 L 03/21/17 15:00 03/21/17 16:15 03/21/17 15:00 03/21/17 15:00 03/21/17 17:12 Intake and Output: 03/21/17 03/21/17 06:59 18:59 Intake Total 510 500 Output Total 350 Balance 160 500 - Medications Medications: Current Medications Acetaminophen (Tylenol 325mg Tab) 650 mg PO Q4 PRN PRN Reason: Pain, Mild (1-3) Albuterol/Ipratropium (Duoneb 3 Mg/0.5 Mg (3 Ml) Ud) 3 ml IH Q6 PRN PRN Reason: Shortness of Breath Last Admin: 03/19/17 14:44 Dose: 3 ml Apixaban (Eliquis) 5 mg PO DAILY [facility] Last Admin: 03/21/17 10:39 Dose: 5 mg Carvedilol (Coreg) 6.25 mg PO BID [facility] Last Admin: 03/21/17 10:39 Dose: 6.25 mg Ezetimibe (Zetia) 10 mg PO HS [facility] Last Admin: 03/20/17 21:23 Dose: 10 mg Famotidine (Pepcid) 20 mg PO DAILY [facility] Last Admin: 03/21/17 10:39 Dose: 20 mg Fluticasone Propionate (Flonase) 1 spr NS DAILY [facility] Last Admin: 03/21/17 10:50 Dose: 1 puff Doxycycline Hyclate 100 mg/ (Sodium Chloride) 100 mls @ 100 mls/hr IVPB Q12H [facility] Last Admin: 03/21/17 13:54 Dose: 100 mls/hr Cefepime HCl (Maxipime Iv 1 Gm Premix) 1 gm in 50 mls @ 100 mls/hr IVPB Q12H [facility] Last Admin: 03/21/17 12:05 Dose: 100 mls/hr Lactic Acid (Lac-Hydrin 12% Lotion (225 G)) 0 gm EXT BID [facility] Last Admin: 03/21/17 10:48 Dose: 1 each Lisinopril (Zestril) 2.5 mg PO DAILY [facility] Last Admin: 03/21/17 10:40 Dose: 2.5 mg Megestrol Acetate (Megace) 400 mg PO DAILY [facility] Last Admin: 03/21/17 10:39 Dose: 400 mg Multivitamins (Hexavitamin) 1 tab PO DAILY [facility] Last Admin: 03/21/17 10:39 Dose: 1 tab Mupirocin (Bactroban Ointment) 0 gm TOP QSHIFT [facility] Last Admin: 03/21/17 15:12 Dose: Not Given [id number] Ethyl Esters (Lovaza) 1 gm PO BID [facility] Oxycodone/Acetaminophen (Percocet 5/325 Mg Tab) 2 tab PO Q4H PRN PRN Reason: Pain, severe (8-10) Stop: 03/23/17 20:04 Last Admin: 03/21/17 13:53 Dose: 2 tab Pantoprazole Sodium (Protonix Inj) 40 mg IVP DAILY [facility] Last Admin: 03/21/17 10:39 Dose: 40 mg Rosuvastatin Calcium (Crestor) 5 mg PO HS [facility] Last Admin: 03/20/17 21:21 Dose: 5 mg Fluticasone/Salmeterol (Advair Diskus 250/50) 1 puff INH RQ12 [facility] Last Admin: 03/21/17 07:42 Dose: 1 puff Sennosides (Senokot Tab) 17.2 mg PO HS [facility] Last Admin: 03/20/17 21:22 Dose: 17.2 mg Torsemide (Demadex) 20 mg PO DAILY [facility] Last Admin: 03/21/17 10:39 Dose: 20 mg Trazodone HCl (Desyrel) 100 mg PO HS [facility] Last Admin: 03/20/17 21:21 Dose: 100 mg - Labs Labs: 03/15/17 06:27 03/18/17 06:24 PT 16.9 SECONDS (9.7-12.2) H 03/18/17 06:28 INR 1.5 03/18/17 06:28 APTT 61 SECONDS (21-34) H 03/13/17 23:07
[2017-03-21] MEDS: Omega-3-Acid Ethyl Esters 1 GM Cap PO SCH (18:55)
--- NOTE | 2017-03-21 19:50 | CP.PCM.PN ---
Subjective - Date & Time of Evaluation Date of Evaluation: 03/21/17 Time of Evaluation: 09:40 - Subjective Subjective: clinically same Objective - Vital Signs/Intake and Output Vital Signs (last 24 hours): Temp Pulse Resp BP Pulse Ox 98.3 F 54 L 20 101/62 88 L 03/21/17 15:00 03/21/17 18:54 03/21/17 15:00 03/21/17 18:54 03/21/17 17:12 Intake and Output: 03/21/17 03/22/17 18:59 06:59 Intake Total 500 Balance 500 - Medications Medications: Current Medications Acetaminophen (Tylenol 325mg Tab) 650 mg PO Q4 PRN PRN Reason: Pain, Mild (1-3) Albuterol/Ipratropium (Duoneb 3 Mg/0.5 Mg (3 Ml) Ud) 3 ml IH Q6 PRN PRN Reason: Shortness of Breath Last Admin: 03/19/17 14:44 Dose: 3 ml Apixaban (Eliquis) 5 mg PO DAILY [facility] Last Admin: 03/21/17 10:39 Dose: 5 mg Carvedilol (Coreg) 6.25 mg PO BID [facility] Last Admin: 03/21/17 18:55 Dose: Not Given Ezetimibe (Zetia) 10 mg PO HS [facility] Last Admin: 03/20/17 21:23 Dose: 10 mg Famotidine (Pepcid) 20 mg PO DAILY [facility] Last Admin: 03/21/17 10:39 Dose: 20 mg Fluticasone Propionate (Flonase) 1 spr NS DAILY [facility] Last Admin: 03/21/17 10:50 Dose: 1 puff Doxycycline Hyclate 100 mg/ (Sodium Chloride) 100 mls @ 100 mls/hr IVPB Q12H [facility] Last Admin: 03/21/17 13:54 Dose: 100 mls/hr Cefepime HCl (Maxipime Iv 1 Gm Premix) 1 gm in 50 mls @ 100 mls/hr IVPB Q12H [facility] Last Admin: 03/21/17 12:05 Dose: 100 mls/hr Lactic Acid (Lac-Hydrin 12% Lotion (225 G)) 0 gm EXT BID [facility] Last Admin: 03/21/17 18:56 Dose: Not Given Lisinopril (Zestril) 2.5 mg PO DAILY [facility] Last Admin: 03/21/17 10:40 Dose: 2.5 mg Megestrol Acetate (Megace) 400 mg PO DAILY [facility] Last Admin: 03/21/17 10:39 Dose: 400 mg Multivitamins (Hexavitamin) 1 tab PO DAILY [facility] Last Admin: 03/21/17 10:39 Dose: 1 tab Mupirocin (Bactroban Ointment) 0 gm TOP QSHIFT [facility] Last Admin: 03/21/17 15:12 Dose: Not Given Woakg-2-Hpig Ethyl Esters (Lovaza) 1 gm PO BID [facility] Last Admin: 03/21/17 18:55 Dose: 1 gm Oxycodone/Acetaminophen (Percocet 5/325 Mg Tab) 2 tab PO Q4H PRN PRN Reason: Pain, severe (8-10) Stop: 03/23/17 20:04 Last Admin: 03/21/17 13:53 Dose: 2 tab Pantoprazole Sodium (Protonix Inj) 40 mg IVP DAILY [facility] Last Admin: 03/21/17 10:39 Dose: 40 mg Rosuvastatin Calcium (Crestor) 5 mg PO HS [facility] Last Admin: 03/20/17 21:21 Dose: 5 mg Fluticasone/Salmeterol (Advair Diskus 250/50) 1 puff INH RQ12 [facility] Last Admin: 03/21/17 07:42 Dose: 1 puff Sennosides (Senokot Tab) 17.2 mg PO HS [facility] Last Admin: 03/20/17 21:22 Dose: 17.2 mg Torsemide (Demadex) 20 mg PO DAILY [facility] Last Admin: 03/21/17 10:39 Dose: 20 mg Trazodone HCl (Desyrel) 100 mg PO [facility] Last Admin: 03/20/17 21:21 Dose: 100 mg - Labs Labs: 03/15/17 06:27 03/18/17 06:24 PT 16.9 SECONDS (9.7-12.2) H 03/18/17 06:28 INR 1.5 03/18/17 06:28 APTT 61 SECONDS (21-34) H 03/13/17 23:07 - Constitutional Appears: Well - Head Exam Head Exam: ATRAUMATIC, NORMAL INSPECTION, NORMOCEPHALIC - Eye Exam Eye Exam: EOMI, Normal appearance, PERRL Pupil Exam: NORMAL ACCOMODATION, PERRL - ENT Exam ENT Exam: Mucous Membranes Moist, Normal Exam - Neck Exam Neck Exam: Full ROM, Normal Inspection. absent: Lymphadenopathy - Respiratory Exam Respiratory Exam: Decreased Breath Sounds - Cardiovascular Exam Cardiovascular Exam: +S1, +S2 - GI/Abdominal Exam GI & Abdominal Exam: Soft, Diminished Bowel Sounds - Rectal Exam Rectal Exam: Deferred
[2017-03-22] MEDS: Cefepime IV 1 gm in Dextrose 1 GM/50 ML BAG IVPB SCH ×2 (00:56→13:31)
[2017-03-22] MEDS: Oxycodone/Acetaminophen 5/325 mg Tab PO PRN ×2 (06:06→13:50)
[2017-03-22] MEDS: Fluticasone-Salmeterol 250-50mcg Diskus INH SCH ×2 (08:04→19:36)
[2017-03-22] MEDS: Fluticasone Nasal 50 mcg/Spray NS SCH (10:50)
[2017-03-22] MEDS: Megestrol Acetate 40 mg/ml Cup PO SCH (10:51)
[2017-03-22] MEDS: Multiple Vitamins Tab PO SCH (10:51)
[2017-03-22] MEDS: Omega-3-Acid Ethyl Esters 1 GM Cap PO SCH ×2 (10:51→18:40)
[2017-03-22] MEDS: Ammonium Lactate 12% Lotion (225 g) EXT SCH ×2 (11:00→18:41)
[2017-03-22 12:17] LABS: HEMOGLOBIN 11.4 g/dL (12.0-18.0); MEAN CELL VOLUME 94.1 fL (80.0-94.0); MEAN CORPUSCULAR HEMOGLOBIN 32.6 pg (27.0-31.0); MEAN CORPUSCULAR HGB CONC 34.6 g/dL (33.0-37.0); MEAN PLATELET VOLUME 9.6 fL (7.2-11.7); RBC 3.51 Mil/uL (4.40-5.90); RED CELL DISTRIBUTION WIDTH 15.3 % (11.5-14.5)
[2017-03-22 12:27] LABS: WHITE BLOOD COUNT 5.8 K/uL (4.8-10.8)
[2017-03-22 12:39] LABS: ALB/GLOB RATIO 0.7 (1.0-2.1); ALBUMIN 3.3 g/dL (3.5-5.0); CALCIUM 8.7 mg/dl (8.6-10.4)
--- NOTE | 2017-03-22 17:08 | CP.PCM.PN ---
Subjective - Date & Time of Evaluation Date of Evaluation: 03/22/17 Time of Evaluation: 11:20 - Subjective Subjective: clinically same Objective - Vital Signs/Intake and Output Vital Signs (last 24 hours): Temp Pulse Resp BP Pulse Ox 97.5 F L 61 20 125/82 97 03/22/17 15:20 03/22/17 15:20 03/22/17 15:20 03/22/17 15:20 03/22/17 15:20 Intake and Output: 03/22/17 03/22/17 06:59 18:59 Intake Total 390 550 Output Total 850 Balance 390 -300 - Medications Medications: Current Medications Acetaminophen (Tylenol 325mg Tab) 650 mg PO Q4 PRN PRN Reason: Pain, Mild (1-3) Albuterol/Ipratropium (Duoneb 3 Mg/0.5 Mg (3 Ml) Ud) 3 ml IH Q6 PRN PRN Reason: Shortness of Breath Last Admin: 03/19/17 14:44 Dose: 3 ml Apixaban (Eliquis) 5 mg PO DAILY [facility] Last Admin: 03/22/17 10:51 Dose: 5 mg Carvedilol (Coreg) 6.25 mg PO BID [facility] Last Admin: 03/22/17 10:51 Dose: Not Given Ezetimibe (Zetia) 10 mg PO HS [facility] Last Admin: 03/21/17 23:01 Dose: 10 mg Famotidine (Pepcid) 20 mg PO DAILY [facility] Last Admin: 03/22/17 10:51 Dose: 20 mg Fluticasone Propionate (Flonase) 1 spr NS DAILY [facility] Last Admin: 03/22/17 10:50 Dose: 1 puff Doxycycline Hyclate 100 mg/ (Sodium Chloride) 100 mls @ 100 mls/hr IVPB Q12H [facility] Last Admin: 03/22/17 14:45 Dose: 100 mls/hr Cefepime HCl (Maxipime Iv 1 Gm Premix) 1 gm in 50 mls @ 100 mls/hr IVPB Q12H [facility] Last Admin: 03/22/17 13:31 Dose: 100 mls/hr Lactic Acid (Lac-Hydrin 12% Lotion (225 G)) 0 gm EXT BID [facility] Last Admin: 03/22/17 11:00 Dose: 1 applic Lisinopril (Zestril) 2.5 mg PO DAILY [facility] Last Admin: 03/22/17 10:52 Dose: Not Given Megestrol Acetate (Megace) 400 mg PO DAILY [facility] Last Admin: 03/22/17 10:51 Dose: 400 mg Multivitamins (Hexavitamin) 1 tab PO DAILY [facility] Last Admin: 03/22/17 10:51 Dose: 1 tab Mupirocin (Bactroban Ointment) 0 gm TOP QSHIFT [facility] Last Admin: 03/22/17 15:00 Dose: 1 applic [id number] Ethyl Esters (Lovaza) 1 gm PO BID [facility] Last Admin: 03/22/17 10:51 Dose: 1 gm Oxycodone/Acetaminophen (Percocet 5/325 Mg Tab) 2 tab PO Q4H PRN PRN Reason: Pain, severe (8-10) Stop: 03/23/17 20:04 Last Admin: 03/22/17 13:50 Dose: 2 tab Pantoprazole Sodium (Protonix Inj) 40 mg IVP DAILY [facility] Last Admin: 03/22/17 10:50 Dose: 40 mg Rosuvastatin Calcium (Crestor) 5 mg PO HS [facility] Last Admin: 03/21/17 23:01 Dose: 5 mg Fluticasone/Salmeterol (Advair Diskus 250/50) 1 puff INH RQ12 [facility] Last Admin: 03/22/17 08:04 Dose: 1 puff Sennosides (Senokot Tab) 17.2 mg PO HS [facility] Last Admin: 03/21/17 23:01 Dose: 17.2 mg Torsemide (Demadex) 20 mg PO DAILY [facility] Last Admin: 03/22/17 10:52 Dose: Not Given Trazodone HCl (Desyrel) 100 mg PO HS [facility] Last Admin: 03/21/17 23:01 Dose: 100 mg - Labs Labs: 03/22/17 12:03 03/22/17 12:03 PT 16.9 SECONDS (9.7-12.2) H 03/18/17 06:28 INR 1.5 03/18/17 06:28 APTT 61 SECONDS (21-34) H 03/13/17 23:07 - Constitutional Appears: Well - Head Exam Head Exam: ATRAUMATIC, NORMAL INSPECTION, NORMOCEPHALIC - Eye Exam Eye Exam: EOMI, Normal appearance, PERRL Pupil Exam: NORMAL ACCOMODATION, PERRL - ENT Exam ENT Exam: Mucous Membranes Moist, Normal Exam - Neck Exam Neck Exam: Full ROM, Normal Inspection. absent: Lymphadenopathy - Respiratory Exam Respiratory Exam: Decreased Breath Sounds - Cardiovascular Exam Cardiovascular Exam: REGULAR RHYTHM, +S1, +S2 - GI/Abdominal Exam GI & Abdominal Exam: Soft, Diminished Bowel Sounds - Rectal Exam Rectal Exam: Deferred
--- NOTE | 2017-03-22 17:16 | CP.PCM.PN ---
Subjective - Date & Time of Evaluation Date of Evaluation: 03/22/17 Time of Evaluation: 17:16 Objective - Vital Signs/Intake and Output Vital Signs (last 24 hours): Temp Pulse Resp BP Pulse Ox 97.5 F L 61 20 125/82 97 03/22/17 15:20 03/22/17 15:20 03/22/17 15:20 03/22/17 15:20 03/22/17 15:20 Intake and Output: 03/22/17 03/22/17 06:59 18:59 Intake Total 390 550 Output Total 850 Balance 390 -300 - Medications Medications: Current Medications Acetaminophen (Tylenol 325mg Tab) 650 mg PO Q4 PRN PRN Reason: Pain, Mild (1-3) Albuterol/Ipratropium (Duoneb 3 Mg/0.5 Mg (3 Ml) Ud) 3 ml IH Q6 PRN PRN Reason: Shortness of Breath Last Admin: 03/19/17 14:44 Dose: 3 ml Apixaban (Eliquis) 5 mg PO DAILY [facility] Last Admin: 03/22/17 10:51 Dose: 5 mg Carvedilol (Coreg) 6.25 mg PO BID [facility] Last Admin: 03/22/17 10:51 Dose: Not Given Ezetimibe (Zetia) 10 mg PO HS [facility] Last Admin: 03/21/17 23:01 Dose: 10 mg Famotidine (Pepcid) 20 mg PO DAILY [facility] Last Admin: 03/22/17 10:51 Dose: 20 mg Fluticasone Propionate (Flonase) 1 spr NS DAILY [facility] Last Admin: 03/22/17 10:50 Dose: 1 puff Doxycycline Hyclate 100 mg/ (Sodium Chloride) 100 mls @ 100 mls/hr IVPB Q12H [facility] Last Admin: 03/22/17 14:45 Dose: 100 mls/hr Cefepime HCl (Maxipime Iv 1 Gm Premix) 1 gm in 50 mls @ 100 mls/hr IVPB Q12H [facility] Last Admin: 03/22/17 13:31 Dose: 100 mls/hr Lactic Acid (Lac-Hydrin 12% Lotion (225 G)) 0 gm EXT BID [facility] Last Admin: 03/22/17 11:00 Dose: 1 applic Lisinopril (Zestril) 2.5 mg PO DAILY [facility] Last Admin: 03/22/17 10:52 Dose: Not Given Megestrol Acetate (Megace) 400 mg PO DAILY [facility] Last Admin: 03/22/17 10:51 Dose: 400 mg Multivitamins (Hexavitamin) 1 tab PO DAILY [facility] Last Admin: 03/22/17 10:51 Dose: 1 tab Mupirocin (Bactroban Ointment) 0 gm TOP QSHIFT [facility] Last Admin: 03/22/17 15:00 Dose: 1 applic [id number]-7-[id number] Ethyl Esters (Lovaza) 1 gm PO BID [facility] Last Admin: 03/22/17 10:51 Dose: 1 gm Oxycodone/Acetaminophen (Percocet 5/325 Mg Tab) 2 tab PO Q4H PRN PRN Reason: Pain, severe (8-10) Stop: 03/23/17 20:04 Last Admin: 03/22/17 13:50 Dose: 2 tab Pantoprazole Sodium (Protonix Inj) 40 mg IVP DAILY [facility] Last Admin: 03/22/17 10:50 Dose: 40 mg Rosuvastatin Calcium (Crestor) 5 mg PO [facility] Last Admin: 03/21/17 23:01 Dose: 5 mg Fluticasone/Salmeterol (Advair Diskus 250/50) 1 puff INH RQ12 [facility] Last Admin: 03/22/17 08:04 Dose: 1 puff Sennosides (Senokot Tab) 17.2 mg PO HS [facility] Last Admin: 03/21/17 23:01 Dose: 17.2 mg Torsemide (Demadex) 20 mg PO DAILY [facility] Last Admin: 03/22/17 10:52 Dose: Not Given Trazodone HCl (Desyrel) 100 mg PO HS [facility] Last Admin: 03/21/17 23:01 Dose: 100 mg - Labs Labs: 03/22/17 12:03 03/22/17 12:03 PT 16.9 SECONDS (9.7-12.2) H 03/18/17 06:28 INR 1.5 03/18/17 06:28 APTT 61 SECONDS (21-34) H 03/13/17 23:07
[2017-03-23 00:47] VITALS: O2SAT 95
[2017-03-23] MEDS: Cefepime IV 1 gm in Dextrose 1 GM/50 ML BAG IVPB SCH ×2 (01:15→14:00)
[2017-03-23] MEDS: Oxycodone/Acetaminophen 5/325 mg Tab PO PRN ×3 (01:23→17:58)
[2017-03-23] MEDS: Fluticasone-Salmeterol 250-50mcg Diskus INH SCH (08:06)
[2017-03-23] MEDS: Omega-3-Acid Ethyl Esters 1 GM Cap PO SCH (09:22)
[2017-03-23] MEDS: Multiple Vitamins Tab PO SCH (09:22)
[2017-03-23] MEDS: Megestrol Acetate 40 mg/ml Cup PO SCH (09:22)
[2017-03-23] MEDS: Fluticasone Nasal 50 mcg/Spray NS SCH (11:00)
[2017-03-23] MEDS: Ammonium Lactate 12% Lotion (225 g) EXT SCH (11:00)
--- NOTE | 2017-03-23 11:53 | CP.PCM.PN ---
Subjective - Date & Time of Evaluation Date of Evaluation: 03/23/17 Time of Evaluation: 11:30 - Subjective Subjective: Podiatry Progress Note- Dr. Eli 86 yo male pt seen at bedside this morning for b/l LE edema with venous stasis dermatitis. Pt seen resting in bedside chair at time of visit with b/l legs in dependent position with TANIKA wraps not applied. Pt says he is unable to elevate the legs for longer than 20 min period because he starts to feel "spasms" in his leg and feet which he says in relieved by percocet and getting up to walk. Says he walked a lot this morning. Says that his left leg swelling is improved but the right leg still swollen. Reports mild tenderness to the legs, says itchiness is better with the cream. Denies f/n/v/c/sob/cp/weakness or dizziness today. Objective - Vital Signs/Intake and Output Vital Signs (last 24 hours): Temp Pulse Resp BP Pulse Ox 98.9 F 62 20 110/67 95 03/23/17 08:00 03/23/17 11:10 03/23/17 08:00 03/23/17 11:10 03/23/17 08:00 Intake and Output: 03/23/17 03/23/17 06:59 18:59 Intake Total 960 Output Total 1000 Balance -40 - Medications Medications: Current Medications Acetaminophen (Tylenol 325mg Tab) 650 mg PO Q4 PRN PRN Reason: Pain, Mild (1-3) Albuterol/Ipratropium (Duoneb 3 Mg/0.5 Mg (3 Ml) Ud) 3 ml IH Q6 PRN PRN Reason: Shortness of Breath Last Admin: 03/19/17 14:44 Dose: 3 ml Apixaban (Eliquis) 5 mg PO DAILY [facility] Last Admin: 03/23/17 09:22 Dose: 5 mg Carvedilol (Coreg) 6.25 mg PO BID [facility] Last Admin: 03/23/17 11:00 Dose: 6.25 mg Ezetimibe (Zetia) 10 mg PO HS [facility] Last Admin: 03/22/17 22:12 Dose: 10 mg Famotidine (Pepcid) 20 mg PO DAILY [facility] Last Admin: 03/23/17 09:22 Dose: 20 mg Fluticasone Propionate (Flonase) 1 spr NS DAILY [facility] Last Admin: 03/23/17 11:00 Dose: 1 puff Doxycycline Hyclate 100 mg/ (Sodium Chloride) 100 mls @ 100 mls/hr IVPB Q12H [facility] Last Admin: 03/23/17 02:00 Dose: 100 mls/hr Cefepime HCl (Maxipime Iv 1 Gm Premix) 1 gm in 50 mls @ 100 mls/hr IVPB Q12H [facility] Last Admin: 03/23/17 01:15 Dose: 100 mls/hr Lactic Acid (Lac-Hydrin 12% Lotion (225 G)) 0 gm EXT BID [facility] Last Admin: 03/23/17 11:00 Dose: 1 applic Lisinopril (Zestril) 2.5 mg PO DAILY [facility] Last Admin: 03/23/17 09:22 Dose: 2.5 mg Megestrol Acetate (Megace) 400 mg PO DAILY [facility] Last Admin: 03/23/17 09:22 Dose: 400 mg Multivitamins (Hexavitamin) 1 tab PO DAILY [facility] Last Admin: 03/23/17 09:22 Dose: 1 tab Mupirocin (Bactroban Ointment) 0 gm TOP QSHIFT [facility] Last Admin: 03/23/17 05:42 Dose: 1 applic [id number]-9-[id number] Ethyl Esters (Lovaza) 1 gm PO BID [facility] Last Admin: 03/23/17 09:22 Dose: 1 gm Oxycodone/Acetaminophen (Percocet 5/325 Mg Tab) 2 tab PO Q4H PRN PRN Reason: Pain, severe (8-10) Stop: 03/23/17 20:04 Last Admin: 03/23/17 01:23 Dose: 2 tab Pantoprazole Sodium (Protonix Inj) 40 mg IVP DAILY [facility] Last Admin: 03/23/17 09:22 Dose: 40 mg Rosuvastatin Calcium (Crestor) 5 mg PO [facility] Last Admin: 03/22/17 22:04 Dose: 5 mg Fluticasone/Salmeterol (Advair Diskus 250/50) 1 puff INH RQ12 [facility] Last Admin: 03/23/17 08:06 Dose: 1 puff Sennosides (Senokot Tab) 17.2 mg PO [facility] Last Admin: 03/22/17 22:04 Dose: 17.2 mg Torsemide (Demadex) 20 mg PO DAILY [facility] Last Admin: 03/23/17 09:22 Dose: 20 mg Trazodone HCl (Desyrel) 100 mg PO [facility] Last Admin: 03/22/17 22:20 Dose: Not Given - Labs Labs: 03/22/17 12:03 03/22/17 12:03 PT 16.9 SECONDS (9.7-12.2) H 03/18/17 06:28 INR 1.5 03/18/17 06:28 APTT 61 SECONDS (21-34) H 03/13/17 23:07 - Constitutional Appears: Non-toxic, No Acute Distress - Extremities Exam Extremities Exam: absent: Calf Tenderness Additional comments: B/l LE focused exam Vasc: DP/PT pulses palpable 1/4 BL, cap refill brisk to all digits, skin temp wnl BL, 3+ pitting edema noted to b/l anterior legs and dorsum of feet (R>>L) Neuro: Epicritic and protective sensation grossly intact b/l Derm: venous stasis dermatits changes noted to b/l shins with hemosiderin deposits present. Otherwise no open lesions, wounds, maceration, xerosis, abnormal pigmentation or abnormal growths noted. Nails are dystrophic and thickened but of appropriate length MSK: slight tenderness on palp of anterior legs bl, No gross deformities noted b/l - Neurological Exam Neurological Exam: Alert, Awake, Oriented x3 - Psychiatric Exam Psychiatric exam: Normal Affect, Normal Mood Assessment and Plan - Assessment and Plan (Free Text) Assessment: 86 year old male w/ b/l lower extremity edema secondary to venous stasis insufficiency Plan: Pt S&E a the bedside Plan discussed with attending Dr. Eli Chart, labs and vitals reviewed: afebrile, no leukocytosis c/w ammonium lactate application b/l legs and feet b/l legs wrapped with TANIKA compressive bandages pt encouraged to elevate the legs as much as possible and to keep out of dependent position pt also encouraged to walk as much as possible stable per podiatry will follow
--- NOTE | 2017-03-23 14:56 | CP.PCM.PN ---
Subjective - Date & Time of Evaluation Date of Evaluation: 03/23/17 Time of Evaluation: 12:40 - Subjective Subjective: [employer] NOTES Patient seen today with Dr. Phani otoole , denies any complaints pacemaker interrogated yesterday, battery OK No overnight events recorder on monitor Dr. Rangel cleared for discharge back to [facility] As per Dr. Otoole, patient can be discharged back to [facility] today and continue antibiotics for 5 more days and repeat cxr in 3 weeks Objective - Vital Signs/Intake and Output Vital Signs (last 24 hours): Temp Pulse Resp BP Pulse Ox 98.9 F 78 20 110/67 95 03/23/17 08:00 03/23/17 12:00 03/23/17 08:00 03/23/17 11:10 03/23/17 08:00 Intake and Output: 03/23/17 03/23/17 06:59 18:59 Intake Total 960 300 Output Total 1000 Balance -40 300 - Medications Medications: Current Medications Acetaminophen (Tylenol 325mg Tab) 650 mg PO Q4 PRN PRN Reason: Pain, Mild (1-3) Albuterol/Ipratropium (Duoneb 3 Mg/0.5 Mg (3 Ml) Ud) 3 ml IH Q6 PRN PRN Reason: Shortness of Breath Last Admin: 03/19/17 14:44 Dose: 3 ml Apixaban (Eliquis) 5 mg PO DAILY [facility] Last Admin: 03/23/17 09:22 Dose: 5 mg Carvedilol (Coreg) 6.25 mg PO BID [facility] Last Admin: 03/23/17 11:00 Dose: 6.25 mg Ezetimibe (Zetia) 10 mg PO HS [facility] Last Admin: 03/22/17 22:12 Dose: 10 mg Famotidine (Pepcid) 20 mg PO DAILY [facility] Last Admin: 03/23/17 09:22 Dose: 20 mg Fluticasone Propionate (Flonase) 1 spr NS DAILY [facility] Last Admin: 03/23/17 11:00 Dose: 1 puff Doxycycline Hyclate 100 mg/ (Sodium Chloride) 100 mls @ 100 mls/hr IVPB Q12H [facility] Last Admin: 03/23/17 02:00 Dose: 100 mls/hr Lactic Acid (Lac-Hydrin 12% Lotion (225 G)) 0 gm EXT BID [facility] Last Admin: 03/23/17 11:00 Dose: 1 applic Lisinopril (Zestril) 2.5 mg PO DAILY [facility] Last Admin: 03/23/17 09:22 Dose: 2.5 mg Megestrol Acetate (Megace) 400 mg PO DAILY [facility] Last Admin: 03/23/17 09:22 Dose: 400 mg Multivitamins (Hexavitamin) 1 tab PO DAILY [facility] Last Admin: 03/23/17 09:22 Dose: 1 tab Mupirocin (Bactroban Ointment) 0 gm TOP QSHIFT [facility] Last Admin: 03/23/17 13:35 Dose: 1 applic Muscd-6-Guyu Ethyl Esters (Lovaza) 1 gm PO BID [facility] Last Admin: 03/23/17 09:22 Dose: 1 gm Oxycodone/Acetaminophen (Percocet 5/325 Mg Tab) 2 tab PO Q4H PRN PRN Reason: Pain, severe (8-10) Stop: 03/23/17 20:04 Last Admin: 03/23/17 13:45 Dose: 2 tab Pantoprazole Sodium (Protonix Inj) 40 mg IVP DAILY [facility] Last Admin: 03/23/17 09:22 Dose: 40 mg Rosuvastatin Calcium (Crestor) 5 mg PO HS [facility] Last Admin: 03/22/17 22:04 Dose: 5 mg Fluticasone/Salmeterol (Advair Diskus 250/50) 1 puff INH RQ12 [facility] Last Admin: 03/23/17 08:06 Dose: 1 puff Sennosides (Senokot Tab) 17.2 mg PO HS [facility] Last Admin: 03/22/17 22:04 Dose: 17.2 mg Torsemide (Demadex) 20 mg PO DAILY [facility] Last Admin: 03/23/17 09:22 Dose: 20 mg Trazodone HCl (Desyrel) 100 mg PO HS [facility] Last Admin: 03/22/17 22:20 Dose: Not Given - Labs Labs: 03/22/17 12:03 03/22/17 12:03 PT 16.9 SECONDS (9.7-12.2) H 03/18/17 06:28 INR 1.5 03/18/17 06:28 APTT 61 SECONDS (21-34) H 03/13/17 23:07
--- NOTE | 2017-03-23 15:48 | CP.PCM.PN ---
Subjective - Date & Time of Evaluation Date of Evaluation: 03/23/17 Time of Evaluation: 15:48 Objective - Vital Signs/Intake and Output Vital Signs (last 24 hours): Temp Pulse Resp BP Pulse Ox 98.9 F 78 20 110/67 95 03/23/17 08:00 03/23/17 12:00 03/23/17 08:00 03/23/17 11:10 03/23/17 08:00 Intake and Output: 03/23/17 03/23/17 06:59 18:59 Intake Total 960 300 Output Total 1000 Balance -40 300 - Medications Medications: Current Medications Acetaminophen (Tylenol 325mg Tab) 650 mg PO Q4 PRN PRN Reason: Pain, Mild (1-3) Albuterol/Ipratropium (Duoneb 3 Mg/0.5 Mg (3 Ml) Ud) 3 ml IH Q6 PRN PRN Reason: Shortness of Breath Last Admin: 03/19/17 14:44 Dose: 3 ml Apixaban (Eliquis) 5 mg PO DAILY [facility] Last Admin: 03/23/17 09:22 Dose: 5 mg Carvedilol (Coreg) 6.25 mg PO BID [facility] Last Admin: 03/23/17 11:00 Dose: 6.25 mg Ezetimibe (Zetia) 10 mg PO HS [facility] Last Admin: 03/22/17 22:12 Dose: 10 mg Famotidine (Pepcid) 20 mg PO DAILY [facility] Last Admin: 03/23/17 09:22 Dose: 20 mg Fluticasone Propionate (Flonase) 1 spr NS DAILY [facility] Last Admin: 03/23/17 11:00 Dose: 1 puff Doxycycline Hyclate 100 mg/ (Sodium Chloride) 100 mls @ 100 mls/hr IVPB Q12H [facility] Last Admin: 03/23/17 15:32 Dose: 100 mls/hr Lactic Acid (Lac-Hydrin 12% Lotion (225 G)) 0 gm EXT BID [facility] Last Admin: 03/23/17 11:00 Dose: 1 applic Lisinopril (Zestril) 2.5 mg PO DAILY [facility] Last Admin: 03/23/17 09:22 Dose: 2.5 mg Megestrol Acetate (Megace) 400 mg PO DAILY [facility] Last Admin: 03/23/17 09:22 Dose: 400 mg Multivitamins (Hexavitamin) 1 tab PO DAILY [facility] Last Admin: 03/23/17 09:22 Dose: 1 tab Mupirocin (Bactroban Ointment) 0 gm TOP QSHIFT [facility] Last Admin: 03/23/17 13:35 Dose: 1 applic Iwnpd-2-Vsqm Ethyl Esters (Lovaza) 1 gm PO BID [facility] Last Admin: 03/23/17 09:22 Dose: 1 gm Oxycodone/Acetaminophen (Percocet 5/325 Mg Tab) 2 tab PO Q4H PRN PRN Reason: Pain, severe (8-10) Stop: 03/23/17 20:04 Last Admin: 03/23/17 13:45 Dose: 2 tab Pantoprazole Sodium (Protonix Inj) 40 mg IVP DAILY [facility] Last Admin: 03/23/17 09:22 Dose: 40 mg Rosuvastatin Calcium (Crestor) 5 mg PO HS [facility] Last Admin: 03/22/17 22:04 Dose: 5 mg Fluticasone/Salmeterol (Advair Diskus 250/50) 1 puff INH RQ12 [facility] Last Admin: 03/23/17 08:06 Dose: 1 puff Sennosides (Senokot Tab) 17.2 mg PO HS [facility] Last Admin: 03/22/17 22:04 Dose: 17.2 mg Torsemide (Demadex) 20 mg PO DAILY [facility] Last Admin: 03/23/17 09:22 Dose: 20 mg Trazodone HCl (Desyrel) 100 mg PO HS [facility] Last Admin: 03/22/17 22:20 Dose: Not Given - Labs Labs: 03/22/17 12:03 03/22/17 12:03 PT 16.9 SECONDS (9.7-12.2) H 03/18/17 06:28 INR 1.5 03/18/17 06:28 APTT 61 SECONDS (21-34) H 03/13/17 23:07
[2017-03-23 15:55] VITALS: BP 105/57; PULSE 66; TEMP 97.5
--- NOTE | 2017-03-23 16:41 | PCM.HF ---
Heart Failure Core Measure - Heart Failure Ejection Fraction: 40 % or Greater TANIKA Inhibitor Prescribed: Yes Beta-Peace Prescribed: Carvedilol Angiotensin II Receptor Peace Prescribed: No Contraindication/Reason for not providing: on TANIKA AnticoagulationTherapy for Atrial Fibrillation/Atrialflutter: Yes Aldosterone Antagonist Prescribed: No Contraindication/Reason for not providing: EF>45 Hydralazine Nitrate Prescribed: No Contraindication/Reason for not providing: EF>45 Implantable Cardioverter Defibrillator Therapy: No Contraindication/Reason for not providing: PACEMAKER Cardiac Resynchronization Therapy Prescribed: No Contraindication/Reason for not providing: PACEMAKER - Follow up Will be discharged to: Nursing Home Facility ([facility])
--- NOTE | 2017-03-23 16:59 | CP.PCM.PN ---
Subjective - Date & Time of Evaluation Date of Evaluation: 03/23/17 Time of Evaluation: 11:20 - Subjective Subjective: clinically same Objective - Vital Signs/Intake and Output Vital Signs (last 24 hours): Temp Pulse Resp BP Pulse Ox 97.5 F L 66 20 105/57 L 95 03/23/17 15:16 03/23/17 15:16 03/23/17 15:16 03/23/17 15:16 03/23/17 15:16 Intake and Output: 03/23/17 03/23/17 06:59 18:59 Intake Total 960 550 Output Total 1000 Balance -40 550 - Medications Medications: Current Medications Acetaminophen (Tylenol 325mg Tab) 650 mg PO Q4 PRN PRN Reason: Pain, Mild (1-3) Albuterol/Ipratropium (Duoneb 3 Mg/0.5 Mg (3 Ml) Ud) 3 ml IH Q6 PRN PRN Reason: Shortness of Breath Last Admin: 03/19/17 14:44 Dose: 3 ml Apixaban (Eliquis) 5 mg PO DAILY [facility] Last Admin: 03/23/17 09:22 Dose: 5 mg Carvedilol (Coreg) 6.25 mg PO BID [facility] Last Admin: 03/23/17 11:00 Dose: 6.25 mg Ezetimibe (Zetia) 10 mg PO HS [facility] Last Admin: 03/22/17 22:12 Dose: 10 mg Famotidine (Pepcid) 20 mg PO DAILY [facility] Last Admin: 03/23/17 09:22 Dose: 20 mg Fluticasone Propionate (Flonase) 1 spr NS DAILY [facility] Last Admin: 03/23/17 11:00 Dose: 1 puff Doxycycline Hyclate 100 mg/ (Sodium Chloride) 100 mls @ 100 mls/hr IVPB Q12H [facility] Last Admin: 03/23/17 15:32 Dose: 100 mls/hr Lactic Acid (Lac-Hydrin 12% Lotion (225 G)) 0 gm EXT BID [facility] Last Admin: 03/23/17 11:00 Dose: 1 applic Lisinopril (Zestril) 2.5 mg PO DAILY [facility] Last Admin: 03/23/17 09:22 Dose: 2.5 mg Megestrol Acetate (Megace) 400 mg PO DAILY [facility] Last Admin: 03/23/17 09:22 Dose: 400 mg Multivitamins (Hexavitamin) 1 tab PO DAILY [facility] Last Admin: 03/23/17 09:22 Dose: 1 tab Mupirocin (Bactroban Ointment) 0 gm TOP QSHIFT [facility] Last Admin: 03/23/17 13:35 Dose: 1 applic Bpjsv-1-[id number] Ethyl Esters (Lovaza) 1 gm PO BID [facility] Last Admin: 03/23/17 09:22 Dose: 1 gm Oxycodone/Acetaminophen (Percocet 5/325 Mg Tab) 2 tab PO Q4H PRN PRN Reason: Pain, severe (8-10) Stop: 03/23/17 20:04 Last Admin: 03/23/17 13:45 Dose: 2 tab Pantoprazole Sodium (Protonix Inj) 40 mg IVP DAILY [facility] Last Admin: 03/23/17 09:22 Dose: 40 mg Rosuvastatin Calcium (Crestor) 5 mg PO HS [facility] Last Admin: 03/22/17 22:04 Dose: 5 mg Fluticasone/Salmeterol (Advair Diskus 250/50) 1 puff INH RQ12 [facility] Last Admin: 03/23/17 08:06 Dose: 1 puff Sennosides (Senokot Tab) 17.2 mg PO HS [facility] Last Admin: 03/22/17 22:04 Dose: 17.2 mg Torsemide (Demadex) 20 mg PO DAILY [facility] Last Admin: 03/23/17 09:22 Dose: 20 mg Trazodone HCl (Desyrel) 100 mg PO HS [facility] Last Admin: 03/22/17 22:20 Dose: Not Given - Labs Labs: 03/22/17 12:03 03/22/17 12:03 PT 16.9 SECONDS (9.7-12.2) H 03/18/17 06:28 INR 1.5 03/18/17 06:28 APTT 61 SECONDS (21-34) H 03/13/17 23:07 - Constitutional Appears: Well - Head Exam Head Exam: ATRAUMATIC, NORMAL INSPECTION, NORMOCEPHALIC - Eye Exam Eye Exam: EOMI, Normal appearance, PERRL Pupil Exam: NORMAL ACCOMODATION, PERRL - ENT Exam ENT Exam: Mucous Membranes Moist, Normal Exam - Neck Exam Neck Exam: Full ROM, Normal Inspection. absent: Lymphadenopathy - Respiratory Exam Respiratory Exam: Decreased Breath Sounds - Cardiovascular Exam Cardiovascular Exam: REGULAR RHYTHM, +S1, +S2 - GI/Abdominal Exam GI & Abdominal Exam: Soft, Diminished Bowel Sounds - Rectal Exam Rectal Exam: Deferred Assessment and Plan - Assessment and Plan (Free Text) Plan: clinicaly same pt doesnot want me to talk to his cardio as well he doesnot want dr. aviles to go talk to him
== END 2017-03-23 18:44 | DRG 193 ==
LOC: C.ER 22:09 → C.9I 03-14 01:43 → C.6T 03-20 16:58
PROVIDERS: ADMIT Internal Medicine Nephrology; ATTEND Internal Medicine Nephrology
PROC: 5A09557 Assistance with Respiratory Ventilation, Greater than 96 Consecutive Hours, Continuous Positive Airway Pressure (ICD-10-PCS; principal; 2017-03-14)
DX: J18.9 Pneumonia, unspecified organism (principal); J96.01 Acute respiratory failure with hypoxia; N17.9 Acute kidney failure, unspecified; J44.0 Chronic obstructive pulmonary disease with (acute) lower respiratory infection; I50.9 Heart failure, unspecified; I27.20 Pulmonary hypertension, unspecified; I11.0 Hypertensive heart disease with heart failure; I48.2 Chronic atrial fibrillation; I25.10 Atherosclerotic heart disease of native coronary artery without angina pectoris; I87.2 Venous insufficiency (chronic) (peripheral)

== ENCOUNTER 2017-12-30 14:26 | Emergency (ER) | payer MEDICARE, BC ==
[2017-12-30 14:28] VITALS: BMI 29.3
[2017-12-30 14:40] VITALS: TEMP 97.3
--- NOTE | 2017-12-30 14:52 | C.PDOC ---
History Of Present Illness 87-year-old male with a history of pacemaker presents to the ED via EMS from the [facility] for evaluation of a slow heart rate. Patient reports he has been feeling generalized weakness since last night. Notes prior visit to computer application developer Dr. Stone yesterday for chronic leg swelling, pacemaker was okay yesterday. Denies chest pain, shortness of breath, palpitations, fever, nausea, vomiting, and any other associated symptoms. Time Seen by Provider: 12/30/17 14:33 Chief Complaint (Nursing): Dizziness/Lightheaded History Per: Patient History/Exam Limitations: no limitations Onset/Duration Of Symptoms: Hrs Current Symptoms Are (Timing): Still Present Past Medical History Reviewed: Historical Data, Nursing Documentation, Vital Signs Vital Signs: Last Vital Signs Temp 97.3 F L 12/30/17 14:36 Pulse 47 L 12/30/17 14:36 Resp 18 12/30/17 14:36 BP 142/52 L 12/30/17 14:36 Pulse Ox 98 12/30/17 14:36 - Medical History PMH: CHF, COPD, Depression, HTN Denies: Chronic Kidney Disease Surgical History: CABG (1999), Pacemaker (2014) - [employer] ASSISTANCE WITH RESPIRATORY VENTILATION, >96 HRS, CPAP (03/14/17) Family History: States: Unknown Family Hx - Social History Hx Alcohol Use: No Hx Substance Use: No - Immunization History Hx Influenza Vaccination: Yes Hx Pneumococcal Vaccination: Yes Review Of Systems Constitutional: Positive for: Weakness (generalized.), Other (pacemaker.). Negative for: Fever Cardiovascular: Positive for: Other (slow heart rate. ). Negative for: Chest Pain, Palpitations Gastrointestinal: Negative for: Nausea, Vomiting Physical Exam - Physical Exam Appears: Well, Non-toxic, Other (comfortable.) Skin: Normal Color, Warm, Dry Head: Atraumatic, Normacephalic Eye(s): bilateral: Normal Inspection Oral Mucosa: Moist Neck: Normal ROM, Supple Chest: Symmetrical, No Deformity Cardiovascular: Murmur (.), Other (heart irregularly irregular.) Respiratory: Normal Breath Sounds, No Rales, No Rhonchi, No Wheezing Gastrointestinal/Abdominal: Normal Exam, Soft, No Tenderness Extremity: Other (+3 pitting edema with chronic skin changes bilaterally.) Neurological/Psych: Oriented x3, Normal Speech, Normal Motor, Normal Sensation, Normal Reflexes ED Course And Treatment - Laboratory Results Result Diagrams: 12/30/17 15:19 12/30/17 16:28 ECG Rhythm: Atrial Fibrillation Interpretation Of ECG: --left axis deviation. --occasional pacing. --no acute ST changes. --T wave inversion in V4 V5 Rate From EC O2 Sat by Pulse Oximetry: 98 (RA) Pulse Ox Interpretation: Normal - Other Rad CXR X-Ray: Viewed By Me, Read By Radiologist Interpretation: FINDINGS: LUNGS: Left basilar atelectasis and/or small infiltrate associated with a small left-sided effusion. PLEURA: No significant pleural effusion identified, no pneumothorax apparent. CARDIOVASCULAR: Mild aortic atherosclerotic calcification present. Cardiomegaly.. Sternotomy wires again noted. No change single lead pacemaker/defibrillator. OSSEOUS STRUCTURES: No significant abnormalities. VISUALIZED UPPER ABDOMEN: Normal. OTHER FINDINGS: None. IMPRESSION: Left basilar atelectasis and/or small infiltrate associated with a small left-sided effusion. Progress Note: Plan: EKG. Blood sent. Atropine Sulfate .5ml. CXR. Glucose POC. - Physician Consult Information Physician Contacted: Leroy Stone Outcome Of Conversation: Discussed patient at length with computer application developer, pacemaker was set to lower rate by EP Dr. Moreno purposely for patient to have his own nature beats. Since patient has no current symptoms and stable vitals, should be discharged home can follow up in Dr. Stone's office. Patient is comfortable being discharged home and understands follow up plan. Disposition Counseled Patient/Family Regarding: Studies Performed, Diagnosis, Need For Followup - Disposition Referrals: Leroy Stone MD [Staff Provider] - Jose Moreno MD [Staff Provider] - Disposition: HOME/ ROUTINE Disposition Time: 16:50 Condition: STABLE Additional Instructions: FOLLOW UP WITH YOUR DOMESTIC MAID WITHIN 1 WEEK RETURN TO ER IF YOU HAVE ANY CONCERNING SYMPTOMS Instructions: Atrial Fibrillation (DC), Bradycardia (DC) Forms: [employer] (Nicaraguan) Print Language: SOMALI - Clinical Impression Clinical Impression: Bradycardia, Atrial fibrillation - Scribe Statement The provider has reviewed the documentation as recorded by the Scribe (Diana Leung) Provider Attestation: All medical record entries made by the Scribe were at my direction and personally dictated by me. I have reviewed the chart and agree that the record accurately reflects my personal performance of the history, physical exam, medical decision making, and the department course for this patient. I have also personally directed, reviewed, and agree with the discharge instructions and disposition.
[2017-12-30 15:24] LABS: BASO % 0.4 % (0.0-2.0); EOS # 0.1 K/uL (0.0-0.7); EOS % 2.5 % (0.0-4.0); HEMOGLOBIN 11.9 g/dL (12.0-18.0); LYMPH # 0.7 K/uL (1.0-4.3); LYMPH % 12.3 % (20.0-40.0); MEAN CELL VOLUME 99.4 fL (80.0-94.0); MEAN CORPUSCULAR HEMOGLOBIN 33.5 pg (27.0-31.0); MEAN CORPUSCULAR HGB CONC 33.7 g/dL (33.0-37.0); MEAN PLATELET VOLUME 8.6 fL (7.2-11.7); MONO # 0.5 K/uL (0.0-0.8); NEUT # 4.4 K/uL (1.8-7.0); NEUT % 75.8 % (50.0-75.0); RBC 3.55 Mil/uL (4.40-5.90); RED CELL DISTRIBUTION WIDTH 13.5 % (11.5-14.5); WHITE BLOOD COUNT 5.8 K/uL (4.8-10.8)
[2017-12-30] MEDS ORDERED: Atropine Sulfate 1 mg/ml Vial (1 ml) IVP ONE (15:31)
--- NOTE | 2017-12-30 15:53 | RAD ---
Date of service: 12/30/2017 HISTORY: Bradycardia. COMPARISON: None available. FINDINGS: LUNGS: Left basilar atelectasis and/or small infiltrate associated with a small left-sided effusion. PLEURA: No significant pleural effusion identified, no pneumothorax apparent. CARDIOVASCULAR: Mild aortic atherosclerotic calcification present. Cardiomegaly.. Sternotomy wires again noted. No change single lead pacemaker/defibrillator OSSEOUS STRUCTURES: No significant abnormalities. VISUALIZED UPPER ABDOMEN: Normal. OTHER FINDINGS: None. IMPRESSION: Left basilar atelectasis and/or small infiltrate associated with a small left-sided effusion.
[2017-12-30] MEDS ORDERED: Oxycodone/Acetaminophen 5/325 mg Tab PO STA (16:23)
[2017-12-30] MEDS ORDERED: Oxycodone/Acetaminophen 5/325 mg Tab ONE (16:31)
[2017-12-30 16:47] LABS: ALB/GLOB RATIO 1.3 (1.0-2.1); ALBUMIN 4.1 g/dL (3.5-5.0); CALCIUM 9.2 mg/dl (8.6-10.4)
[2017-12-30 16:59] LABS: CK-MB 1.48 ng/mL (0.0-3.38); TROPONIN I 0.024 ng/mL (0.00-0.120)
[2017-12-30 18:21] VITALS: BP 142/76; PULSE 78; RESP 16; O2SAT 99
== END 2017-12-30 18:19 | disposition home or self-care (01) ==
LOC: C.ER 14:26
DX: R00.1 Bradycardia, unspecified (principal); I48.91 Unspecified atrial fibrillation